=== PATIENT | female | born 1980 | race Asian ===

== ENCOUNTER → 2019-06-12 | Outpatient (CLI) | payer OTHER | END | disposition home or self-care (01) | LOC: LABWHC1 10:21 | PROVIDERS: ATTEND Obstetrics & Gynecology | DX: Z34.80 Encounter for supervision of other normal pregnancy, unspecified trimester (principal) | CPT/HCPCS: 36415; 84702 ==

== ENCOUNTER → 2019-06-28 | Outpatient (CLI) | payer OTHER ==
--- NOTE | 2019-06-28 11:44 | US ---
EXAMINATION TYPE: Transabdominal DATE OF EXAM: 06/28/2019 11:29 AM COMPARISON: NONE CLINICAL HISTORY: Z36 Confirm Dates. EXAM PERFORMED: Transabdominal (TA) EXAM MEASUREMENTS: GESTATIONAL AGE / DATING Physician Established: Not yet established Dates by LMP: LMP unknown Dates by First Scan: No previous this is first scan ( Dates by Current Scan for: (12 weeks/3 days) EDC: 01/07/2020 MATERNAL ANATOMY Uterus: 13.2 x 6.9 x 9.7 cm Right Ovary: 3.0 x 1.4 x 2.2 cm Left Ovary: 2.9 x 2.1 x 2.8 cm Post CDS / Adnexa: wnl Presence of free fluid: none Subchorionic hemorrhage: Yes, crescentic 3.5 cm hypoechoic area around the gestational sac. GESTATION / SURVEY CRL: 5.9 cm (12 weeks/3 days) Yolk Sac (normal less than 6mm): not seen Heart Rate: 149 bpm Rhythm: Normal IUP: Live IUP Nuchal Translucency 10-14wks (normal less than 3mm): 1.4 mm Date of LMP: unknown IMPRESSION: 1. Single live intrauterine with a calculated sonographic age of 12 weeks and 3 days and es timated date of delivery of 01/07/2020. 2. Subchorionic hemorrhage is seen measuring approximately 3.5 cm occupying less than 25% the gestati onal sac diameter.
== END | disposition home or self-care (01) ==
LOC: RADUSWWP 11:15
PROVIDERS: ATTEND Obstetrics & Gynecology
DX: O20.9 Hemorrhage in early pregnancy, unspecified (principal); Z3A.12 12 weeks gestation of pregnancy
CPT/HCPCS: 76801; 76813

== ENCOUNTER 2019-11-05 17:24 | Inpatient (IN) | payer MEDICAID, OTHER ==
--- NOTE | 2019-11-05 18:36 | ED ---
General Adult HPI - General Chief complaint: Psychiatric Symptoms Stated complaint: mental health Time Seen by Provider: 11/05/19 17:49 Source: patient, police Mode of arrival: ambulatory Limitations: no limitations - History of Present Illness Initial comments: Dictation was produced using [employer] dictation software. please excuse any grammatical, word or spelling errors. Chief Complaint: 38-year-old female brought in by law enforcement for worm picker order. History of Present Illness: Is a 38-year-old female she was brought in by law enforcement for abnormal behavior. Cranial law enforcement patient has been having strange behavior. was concerned and contacted enforcement sanitation in order for her to be picked up to brought emergency department for psychiatric evaluation. Patient has been cooperative little enforcement. Creatinine is a bit of documentation patient has been having bizarre behavior with visual and auditory hallucinations. Unclear whether patient has history of psychiatric disease. Patient was also endorsed to come to the emergency department by her car varnisher however she's been very adamant that she does not need to come here for evaluation. Patient is allegedly 7 months . She states she is having issues with the . She reports taking her vitamins. The ROS documented in this emergency department record has been reviewed and confirmed by me. Those systems with pertinent positive or negative responses have been documented in the HPI. All other systems are other negative and/or noncontributory. PHYSICAL EXAM: General Impression: Alert and oriented x3, not in acute distress HEENT: Normocephalic atraumatic, extra-ocular movements intact, pupils equal and reactive to light bilaterally, mucous membranes moist. Cardiovascular: Heart regular rate and rhythm, S1&S2 audible, no murmurs, rubs or gallops Chest: Lungs clear to auscultation bilaterally, no rhonchi, no wheeze, no rales Abdomen: Bowel sounds present, abdomen soft, non-tender, non-distended, no organomegaly Musculoskeletal: Pulses present and equal in all extremities, no peripheral edema Motor: no focal deficits noted Neurological: CN II-XII grossly intact, no focal motor or sensory deficits noted Skin: Intact with no visualized rashes Psych: Cooperative, tangential speech ED course: 38-year-old female presents with law enforcement for psychiatric evaluation. As upon arrival shows heart rate of 108, rest of vital signs within acceptable limits. Well-appearing. She has no medical complaints at this time. heart rate is 140. Patient medically cleared for EPS evaluation. Patient vital by EPS. She'll be admitted to inpatient psychiatry. Petition was reviewed. Cert completed. - Related Data Home Medications Medication Instructions Recorded Confirmed Vxm-Rdwp-Esbox Acid 1 cap PO DAILY 11/05/19 11/05/19 [-U Capsule (formulary)] Allergies Allergy/AdvReac Type Severity Reaction Status Date / Time No Known Allergies Allergy Verified 11/05/19 19:20 Review of Systems ROS Statement: Those systems with pertinent positive or pertinent negative responses have been documented in the HPI. ROS Other: All systems not noted in ROS Statement are negative. Past Medical History Past Medical History: No Reported History History of Any Multi-Drug Resistant Organisms: None Reported Past Surgical History: No Surgical Hx Reported Past Psychological History: No Psychological Hx Reported Smoking Status: Never smoker Past Alcohol Use History: None Reported Past Drug Use History: None Reported General Exam Limitations: no limitations Course Vital Signs 11/05/19 17:28 Temperature 98.0 F Pulse Rate 108 H Respiratory 18 Rate Blood Pressure 145/92 O2 Sat by Pulse 100 Oximetry Medical Decision Making - Lab Data Lab Results 11/05/19 Range/Units Unknown Urine Opiates Screen Not Detected (NotDetected) Ur Oxycodone Screen Not Detected (NotDetected) Urine Methadone Screen Not Detected (NotDetected) Ur Propoxyphene Screen Not Detected (NotDetected) Ur Barbiturates Screen Not Detected (NotDetected) U Tricyclic Antidepress Not Detected (NotDetected) Ur Phencyclidine Scrn Not Detected (NotDetected) Ur Amphetamines Screen Not Detected (NotDetected) U Methamphetamines Scrn Not Detected (NotDetected) U Benzodiazepines Scrn Not Detected (NotDetected) Urine Cocaine Screen Not Detected (NotDetected) U Marijuana (THC) Screen Not Detected (NotDetected) Disposition Clinical Impression: Acute psychosis Disposition: ADMITTED IP TO THIS [facility] Condition: Fair Referrals: Wilmar Serna MD [Primary Care Provider] - 1-2 days Decision Time: 20:25
[2019-11-05 19:36] LABS: Amphetamine Screen,Urine Not Detected (NotDetected); Barbiturate Screen,Urine Not Detected (NotDetected); Benzodiazepines Screen,Urine Not Detected (NotDetected); Cocaine Screen,Urine Not Detected (NotDetected); Methadone Screen, Urine Not Detected (NotDetected); Opiate Screen,Urine Not Detected (NotDetected); Oxycodone Screen, Urine Not Detected (NotDetected); Phencyclidine Screen,Urine Not Detected (NotDetected); Tricyclic Antidepressant,Urine Not Detected (NotDetected); Urn Cannabinoid Scrn Not Detected (NotDetected)
[2019-11-05] MEDS ORDERED: ZIPRASIDONE 20 MG VIAL IM PRN ×2 (20:54→23:20)
[2019-11-05] MEDS ORDERED: MAG HYDROX/AL HYDROX/SIMETH 30 ML CUP PO PRN (20:54)
[2019-11-05] MEDS ORDERED: MAGNESIUM HYDROXIDE 2,400 MG/10 ML CUP PO PRN (20:54)
[2019-11-05] MEDS ORDERED: ACETAMINOPHEN TAB 325 MG TAB PO PRN (20:54)
[2019-11-06] MEDS: PRENATAL VIT-IRON-FOLIC ACID 1 EACH CAP PO SCH (09:13)
[2019-11-06 11:22] LABS: ALT 112 U/L (4-34); AST 92 U/L (14-36); African American GFR (CKD) >90 (>60 ml/min/1.73 sqM); Albumin 3.2 g/dL (3.5-5.0); Alkaline Phosphatase 109 U/L (38-126); Anion Gap 7 mmol/L; Blood Urea Nitrogen 11 mg/dL (7-17); Calcium 8.9 mg/dL (8.4-10.2); Carbon Dioxide 23 mmol/L (22-30); Chloride 106 mmol/L (98-107); Cholesterol 285 mg/dL (<200); Glucose 117 mg/dL (74-99); HDL Cholesterol 43 mg/dL (40-60); LDL Cholesterol,Calculated 194 mg/dL (0-99); Non-African American GFR(CKD) >90 (>60 ml/min/1.73 sqM); Potassium 3.7 mmol/L (3.5-5.1); Sodium 136 mmol/L (137-145); Total Bilirubin 0.4 mg/dL (0.2-1.3); Total Protein 6.6 g/dL (6.3-8.2); Triglycerides 238 mg/dL (<150)
[2019-11-06 11:27] LABS: Basophils % (A) 0 %; Eosinophils # (A) 0.3 k/uL (0-0.7); Eosinophils % (A) 4 %; HGB 8.6 gm/dL (11.4-16.0); Hypochromasia Marked; Lymphocytes # (A) 1.4 k/uL (1.0-4.8); Lymphocytes % (A) 16 %; MCH 28.1 pg (25.0-35.0); MCHC 31.9 g/dL (31.0-37.0); Mean Platelet Volume 8.3; Monocytes # (A) 0.5 k/uL (0-1.0); Monocytes % (A) 6 %; Neutrophils # (A) 6.3 k/uL (1.3-7.7); Neutrophils % (A) 73 %; Platelet Count 444 k/uL (150-450); Poikilocytosis Slight; RBC 3.07 m/uL (3.80-5.40); WBC 8.7 k/uL (3.8-10.6)
--- NOTE | 2019-11-06 15:52 | P.HP ---
Psychiatric H&P - . History & Physical: Allergies Allergy/AdvReac Type Severity Reaction Status Date / Time No Known Allergies Allergy Verified 11/05/19 22:39 Vital Signs Temp 98.6 F 11/06/19 06:46 Pulse 87 11/06/19 06:46 Resp 16 11/06/19 06:46 BP 96/52 11/06/19 06:46 Pulse Ox 100 11/05/19 17:28 Intake & Output 11/05/19 11/06/19 11/06/19 18:59 06:59 18:59 Weight 64.773 kg 62.596 kg Laboratory Last Values WBC 8.7 k/uL (3.8-10.6) 11/06/19 10:39 RBC 3.07 m/uL (3.80-5.40) L 11/06/19 10:39 Hgb 8.6 gm/dL (11.4-16.0) L 11/06/19 10:39 Hct 27.0 % (34.0-46.0) L 11/06/19 10:39 MCV 88.0 fL (80.0-100.0) 11/06/19 10:39 MCH 28.1 pg (25.0-35.0) 11/06/19 10:39 MCHC 31.9 g/dL (31.0-37.0) 11/06/19 10:39 RDW 14.0 % (11.5-15.5) 11/06/19 10:39 Plt Count 444 k/uL (150-450) 11/06/19 10:39 Neutrophils % 73 % 11/06/19 10:39 Lymphocytes % 16 % 11/06/19 10:39 Monocytes % 6 % 11/06/19 10:39 Eosinophils % 4 % 11/06/19 10:39 Basophils % 0 % 11/06/19 10:39 Neutrophils # 6.3 k/uL (1.3-7.7) 11/06/19 10:39 Lymphocytes # 1.4 k/uL (1.0-4.8) 11/06/19 10:39 Monocytes # 0.5 k/uL (0-1.0) 11/06/19 10:39 Eosinophils # 0.3 k/uL (0-0.7) 11/06/19 10:39 Basophils # 0.0 k/uL (0-0.2) 11/06/19 10:39 Hypochromasia Marked 11/06/19 10:39 Poikilocytosis Slight 11/06/19 10:39 Sodium 136 mmol/L (137-145) L 11/06/19 10:39 Potassium 3.7 mmol/L (3.5-5.1) 11/06/19 10:39 Chloride 106 mmol/L (98-107) 11/06/19 10:39 Carbon Dioxide 23 mmol/L (22-30) 11/06/19 10:39 Anion Gap 7 mmol/L 11/06/19 10:39 BUN 11 mg/dL (7-17) 11/06/19 10:39 Creatinine 0.55 mg/dL (0.52-1.04) 11/06/19 10:39 Est GFR (CKD-EPI)AfAm >90 (>60 ml/min/1.73 sqM) 11/06/19 10:39 Est GFR (CKD-EPI)NonAf >90 (>60 ml/min/1.73 sqM) 11/06/19 10:39 Glucose 117 mg/dL (74-99) H 11/06/19 10:39 Calcium 8.9 mg/dL (8.4-10.2) 11/06/19 10:39 Total Bilirubin 0.4 mg/dL (0.2-1.3) 11/06/19 10:39 AST 92 U/L (14-36) H 11/06/19 10:39 ALT 112 U/L (4-34) H 11/06/19 10:39 Alkaline Phosphatase 109 U/L (38-126) 11/06/19 10:39 Total Protein 6.6 g/dL (6.3-8.2) 11/06/19 10:39 Albumin 3.2 g/dL (3.5-5.0) L 11/06/19 10:39 Triglycerides 238 mg/dL (<150) H 11/06/19 10:39 Cholesterol 285 mg/dL (<200) H 11/06/19 10:39 LDL Cholesterol, Calc 194 mg/dL (0-99) H 11/06/19 10:39 HDL Cholesterol 43 mg/dL (40-60) 11/06/19 10:39 TSH 0.656 mIU/L (0.465-4.680) 11/06/19 10:39 Urine Opiates Screen Not Detected (NotDetected) 11/05/19 Unknown Ur Oxycodone Screen Not Detected (NotDetected) 11/05/19 Unknown Urine Methadone Screen Not Detected (NotDetected) 11/05/19 Unknown Ur Propoxyphene Screen Not Detected (NotDetected) 11/05/19 Unknown Ur Barbiturates Screen Not Detected (NotDetected) 11/05/19 Unknown U Tricyclic Antidepress Not Detected (NotDetected) 11/05/19 Unknown Ur Phencyclidine Scrn Not Detected (NotDetected) 11/05/19 Unknown Ur Amphetamines Screen Not Detected (NotDetected) 11/05/19 Unknown U Methamphetamines Scrn Not Detected (NotDetected) 11/05/19 Unknown U Benzodiazepines Scrn Not Detected (NotDetected) 11/05/19 Unknown Urine Cocaine Screen Not Detected (NotDetected) 11/05/19 Unknown U Marijuana (THC) Screen Not Detected (NotDetected) 11/05/19 Unknown 11/06/19 12:59 IDENTIFYING DATA: [this patient is a 38-year-old [place] Gabonese female who was admitted to the mental health unit on a pickup order for presumed symptoms of psychosis.] HPI: [the patient was admitted to the hospital after she was brought to the emergency room by police as part of a pickup order. The patient's had completed a petition indicating she was experiencing acute symptoms of psychosis. He alleges that she has made threats to slice his throat or stab him while he sleeps. With the patient expressed permission I was able to speak with the patient via phone. She indicates that for the past 3 years the patient has been demonstrating symptoms of psychosis. It seems to be intensifying more over the last several months and that is when she began making threatening statements towards him. He states that she will frequently talk to herself she gets angry and starts screaming. She is telling family or she can communicate with people that are present such as family in the [place]. She states per his report, people are out to get her and that people on [employer] are watching her.he states she has told him that people are always outside of their home, border patrol is watching her since she is on a green card, and she believes her last employer due to DNA test on her. The patient denies having any symptoms. She continually refers to "the paper" meaning the petition. She frequently states "no comment" when asked about her symptoms of psychosis. She reports no thoughts of harming herself or harming others. She reports no thoughts of harming her children. Her states due to concern related to her behavior he and their 2 children moved out of the family home months ago. He states that he will visit with his during the day but he does not feel safe being at home with her while he sleeps. He indicates that the children's grandmother also provide care. The patient states that she is sleeping well appetite is stable she describes energy level is normal. She is endorsing no episodes of sadness is endorsing no symptoms of anxiety. She does speak Hungarian and she feels that we were effectively communicating.] PAST PSYCHIATRIC HISTORY: [she indicates this is her first inpatient psychiatric admission, no history of suicide attempts she reports no history of self- injurious behavior. She states she has never been prescribed any psychotropic medications] PMH:[she describes herself as "healthy" she is 7 months and has been regularly seen her environmental protection geologist] ALLERGIES: [NO KNOWN DRUG ALLERGIES] MEDICATIONS: [ vitamin] CHEMICAL DEPENDENCY HISTORY: [she reports no use of alcohol marijuana or illicit drugs she states she's never been placed in residential treatment for chemical dependency reasons] FAMILY PSYCHIATRIC HISTORY: [none reported no suicides in the family] FAMILY CHEMICAL DEPENDENCY HISTORY: [none reported] SOCIAL HISTORY: [the patient is 38 years old she has been since 2006 she currently has 2 children a son age 9 and a daughter age 7, she is originally from the [place] [place] she came to the [facility] states in 2008. She has 3 brothers 2 sisters. She indicates in the [place] she completed college earning a degree in business. Legal history none reported. Abuse history none reported] MENTAL STATUS EXAM: [the patient is a [place] female appearing her stated age. She is dressed in hospital gowns. Eye contact is appropriate. She is guarded in the session several times she responds to my questions with "no comment". She somewhat perseverative in constantly referring to the petition that was completed by her . She denies having any symptoms. She reports no mood symptoms no anxiety symptoms. She denies any history of hypomanic or manic episodes. She reports no auditory or visual hallucinations or any specific delusions. She is likely underreporting symptoms. Insight and judgment are impaired. She is oriented to person place and date. She is able to name the days of the week backwards. She demonstrates no verbal or physical aggressiveness. She demonstrates no involuntary or repetitive movements. She does not initiate conversation but provides answers to questions.] STRENGTHS/WEAKNESSES: [strengths: Housing, support from family weaknesses: Reported symptoms of psychosis impairing insight and judgment] INTELLECTUAL FUNCTIONING: [presumed to be average] IMPRESSIONS: [] 1. Psychosis unspecified 2. Patient is 7 months PLAN: [the patient has been admitted to the mental health unit on a petition and clinical certificate. She does not agree with the hospitalization she does not feel that she requires any use of medication. Her via phone supplies several examples of how she has demonstrated symptoms of psychosis. In person she does appear to be guarded and underreporting symptoms. We will observe her as part of our evaluation. She is instructed to attend groups. She will be seen by internal medicine for routine history and physical exam. Social work will meet with the patient to complete a psychosocial assessment and begin discharge planning. We will consider use of an antipsychotic medication despite her as it appears her symptoms of psychosis are causing significant dysfunction. Vital signs reviewed.] 11/06/19 15:45
--- NOTE | 2019-11-06 17:32 | P.OBCN ---
History of Present Illness Consult date: 11/06/19 Reason for consult: other (, pt known to me) Chief complaint: mental health evaluation History of present illness: 38-year-old who is at 30 weeks and 5 days today was petitioned by her for an inpatient mental health evaluation for symptoms of psychosis. She states that the baby is moving well, she is not semaj or having any vaginal bleeding, she does not believe her water was broken. She has no obstetrical complaints. today she tells me that her relationship with her , and her mental health fluid through to speak with her about. I am allowed to speak with her about her and the baby. I believe that her response to me and this is due to the conversation that we had on October 25 in my office. I have been seeing this patient since the beginning of the y. I have been concerned about her mental health for the last few months. She started by telling me in the office a few months ago that her baby can come out of her belly and cuddle with her and then go back in to her belly. When I asked psychiatry for guidance, I was advised to ask her if there is anything else that she is seeing but others are not. When I did put this question to her on Dece mb, the patient said that she sees people come out of the water in the beach, out of them, they do not scare her but they are present and then walk around and go back into the water. She said that sometimes there are people do come out of the bains, up from the floor like smoke and then go back the same way. She said to me at that appointment that this does not bother her, that she does not need mental health evaluation as it is only my opinion that she is having mental health issues. I have spoken to the and family as well who tell me that she has threatened violence to them. She has threatened to cut her 's throat in his sleep. The is not staying with Laura Sanchez denied that at the office visit. Review of Systems All systems: negative Constitutional: Denies chills, Denies fever Eyes: denies blurred vision, denies pain Ears, nose, mouth and throat: Denies headache, Denies sore throat Cardiovascular: Denies chest pain, Denies shortness of breath Respiratory: Denies cough Gastrointestinal: Denies abdominal pain, Denies diarrhea, Denies nausea, Denies vomiting Genitourinary: Denies dysuria, Denies hematuria Musculoskeletal: Denies myalgias Integumentary: Denies pruritus, Denies rash Neurological: Denies numbness, Denies weakness Psychiatric: Denies anxiety, Denies depression Endocrine: Denies fatigue, Denies weight change Past Medical History Past Medical History: No Reported History History of Any Multi-Drug Resistant Organisms: None Reported Past Surgical History: No Surgical Hx Reported Past Psychological History: No Psychological Hx Reported Smoking Status: Never smoker Past Alcohol Use History: None Reported Past Drug Use History: None Reported Medications and Allergies Home Medications Medication Instructions Recorded Confirmed Type Auj-Urrh-Yxuzb Acid 1 cap PO DAILY 11/05/19 11/05/19 History [-U Capsule (formulary)] Allergies Allergy/AdvReac Type Severity Reaction Status Date / Time No Known Allergies Allergy Verified 11/05/19 22:39 Exam Osteopathic Statement: *. No significant issues noted on an osteopathic structural exam other than those noted in the History and Physical/Consult. Vital Signs Temp Pulse Pulse Resp BP BP Pulse Ox 11/06/19 06:46 98.6 F 87 16 96/52 11/05/19 22:22 97.7 F 98 16 118/68 11/05/19 17:28 98.0 F 108 H 18 145/92 100 gravid belly, fundal height 30 cm, heart tones 143. Results Result Diagrams: 11/06/19 10:39 11/06/19 10:39 Abnormal Lab Results - Last 24 Hours (Table) 11/06/19 11/06/19 Range/Units 10:39 10:39 RBC 3.07 L (3.80-5.40) m/uL Hgb 8.6 L (11.4-16.0) gm/dL Hct 27.0 L (34.0-46.0) % Sodium 136 L (137-145) mmol/L Glucose 117 H (74-99) mg/dL AST 92 H (14-36) U/L ALT 112 H (4-34) U/L Albumin 3.2 L (3.5-5.0) g/dL Triglycerides 238 H (<150) mg/dL Cholesterol 285 H (<200) mg/dL LDL Cholesterol, Calc 194 H (0-99) mg/dL Assessment and Plan (1) 30 weeks gestation of Current Visit: Yes Status: Acute Code(s): Z3A.30 - 30 WEEKS GESTATION OF SNOMED Code(s): 84181324 (2) Acute psychosis Current Visit: Yes Status: Acute Code(s): F23 - BRIEF PSYCHOTIC DISORDER SNOMED Code(s): 11099162 Plan: 1. I will have a nurse come down daily for heart tones 2. I will follow her progress 3. She is high-risk due to her advanced maternal age but I couldn't continue surveillance while she is in the hospital and twice weekly surveillance does not start until 32 weeks.
[2019-11-06 19:12] LABS: Hemoglobin A1C 5.1 % (4.0-6.0)
--- NOTE | 2019-11-06 19:59 | P.CONS ---
History of Present Illness - Reason for Consult Consult date: 11/06/19 medical management Requesting physician: Akhil Peña - Chief Complaint threatening - History of Present Illness Consultation: This is a 38-year-old patient who follows with Dr. Serna. Patient is with her third child and is 7 months . 2 other children are healthy. She was admitted following a petition but the that she has threatened to cut her with a knife and hurt him. When I did address the patient if she was hearing voices or seeing people she denied the same. She appeared very calm and comfortable during the interview and was pleasantly answered all the questions. She has been attending a follow-ups with her telephone operator receptionist. Has been taking a multivitamins. She can feel the baby kicking. She sleeps well. Eats well. Denies any pain. I did a cooperative checked later: Notes a psychiatrist and the circulation worker and it seems during her follow-up visits with the telephone operator receptionist she was talking about the baby coming all the belly currently with her and she was seeing people coming out of the water and the bains. When I did ask her about her D for the was going on she said every marriage has some problems and she does not want to talk, etc. no comments Review of systems: GEN.: None EYES: None HEENT: None NECK: None RESPIRATORY: None CARDIOVASCULAR: None GASTROINTESTINAL: None GENITOURINARY: None MUSCULOSKELETAL: None LYMPHATICS: None HEMATOLOGICAL: None PSYCHIATRY: Has above NEUROLOGICAL: None. Past medical history: Unremarkable Social history: Patient currently not employed. Apparently the has moved out to 2 other children and this was at the patient at the current house. Family history: Reviewed, noncontributory to presentation Physical examination: VITAL SIGNS: 98, 108, 18, 145/92, 100% room air repeat blood pressure 96/52 GENERAL: BMI 25.2, laying in bed. EYES: Pupils equal. Conjunctiva normal. HEENT: External appearance of nose and ears normal, oral cavity grossly normal. NECK: JVD not raised; masses not palpable. HEART: First and second heart sounds are normal; no edema. LUNGS: Respiratory rate normal; clear to auscultation. ABDOMEN: Soft, distended, nontender, liver spleen not palpable, no masses palpable. PSYCH: [Alert and oriented x3; mood and affect pleasant l. NEUROLOGICAL: Cranial nerves grossly intact; no facial asymmetry, power and se nsation grossly intact. LYMPHATICS: No lymph nodes palpable in the axilla and neck INVESTIGATIONS, reviewed in the clinical context: White count 8.7 hemoglobin 8.6 L 444 potassium 3.7 creatinine 0.55 AST 92 ALT 112 LDL 194 TSH 0.656, urine drug screen-negative Assessment: -Psychosis, not otherwise specified -Microcytic anemia, of -Elevated liver enzymes, with normal bilirubin Plan: Patient started any medication that'll explain her elevated liver enzymes. Does not have any obstructive picture. No abdominal symptoms. We'll repeat the same. We'll get a liver ultrasound. We'll also check iron studies. Thank you Dr. Peña Past Medical History Past Medical History: No Reported History History of Any Multi-Drug Resistant Organisms: None Reported Past Surgical History: No Surgical Hx Reported Past Psychological History: No Psychological Hx Reported Smoking Status: Never smoker Past Alcohol Use History: None Reported Past Drug Use History: None Reported Medications and Allergies Home Medications Medication Instructions Recorded Confirmed Type Jic-Vodw-Vmmur Acid 1 cap PO DAILY 11/05/19 11/05/19 History [-U Capsule (formulary)] Allergies Allergy/AdvReac Type Severity Reaction Status Date / Time No Known Allergies Allergy Verified 11/05/19 22:39 Physical Exam Vitals: Vital Signs Temp Pulse Pulse Resp BP BP Pulse Ox 11/06/19 06:46 98.6 F 87 16 96/52 11/05/19 22:22 97.7 F 98 16 118/68 11/05/19 17:28 98.0 F 108 H 18 145/92 100 Intake and Output 11/05/19 11/06/19 11/06/19 22:59 06:59 14:59 Other: Weight 62.596 kg Results CBC & Chem 7: 11/06/19 10:39 11/06/19 10:39
[2019-11-07] MEDS: PRENATAL VIT-IRON-FOLIC ACID 1 EACH CAP PO SCH (10:36)
--- NOTE | 2019-11-07 13:46 | US ---
EXAMINATION TYPE: US abdomen limited DATE OF EXAM: 11/07/2019 COMPARISON: NONE CLINICAL HISTORY: elevated transaminases/7 months . elevated transaminases, 7 months EXAM MEASUREMENTS: Liver Length: 15.1 cm Gallbladder Wall: 0.3 cm CBD: 0.4 cm Right Kidney: 11.3 x 3.9 x 5.2 cm Pancreas: Tail obscured by overlying bowel gas Liver: appears wnl Gallbladder: sludge Evidence for sonographic Gtz's sign: no CBD: appears wnl Right Kidney: no evidence of hydronephrosis or mass and cortical medullary differentiation is mainta ined There is no ascites. IMPRESSION: Tumefactive sludge present within the gallbladder.
--- NOTE | 2019-11-07 14:18 | P.PN ---
Progress Note - Text interval history: The patient is found in the hallway she follows me to an interview room. She indicates that she slept last night appetite is stable. She continues to assert that she is "healthy" and does not need treatment. I was able to speak with her at length via phone and also reviewed the note placed by her public policy professor. Both individuals provide information citing specific examples of psychosis that are causing significant dysfunction in the patient's life and her family's life. The patient frequently states "no comment" or "that's nobody's business" when I tried to discuss the symptoms of psychosis. Staff report no aggressive behavior. Mental status exam: The patient is alert she is 7 months and appears to have appropriate weight gain. She is dressed in her own clothing. She is directable. Eye contact is appropriate. Speech is fluent spontaneous nonpressured. During the course of our conversation she indicates that she can understand my questions and answers I provide although she does not agree with them. She continually refers to any statements I make as "that's your opinion". Overall she is guarded and appears to be withholding information regarding current symptoms. Insight and judgment are impaired. She demonstrates no verbal or physical aggressiveness. She is quite perseverative and repeats the same line of thought several times. She is oriented to person place and date. Affect is constricted. She reports no suicidal or homicidal ideation. She denies making statements that she was going to cut or stab her while he slept. Plan: The patient appears guarded and paranoid at times. There is a wealth of information from her as well as her public policy professor regarding recent symptoms of psychosis that it caused significant dysfunction. We will proceed with prescribing Abilify 5 mg daily. I believe in this instance the potential benefits of the medication outweigh any potential risks. She is already in the third trimester. She is informed that she may refuse the medication unless we obtain a treatment order. Her deferral conference is scheduled for today her hearing is scheduled for tomorrow if it is needed. She was informed that I will be on vacation for several days and colleagues will be providing coverage. Vital signs reviewed.
[2019-11-07] MEDS: ARIPiprazole 5 MG TAB PO SCH (16:17)
[2019-11-07 16:19] LABS: % Iron Saturation 2.83 (12.00-45.00); Ferritin 7.4 ng/mL (10.0-291.0)
[2019-11-08] MEDS: ARIPiprazole 5 MG TAB PO SCH (08:24)
[2019-11-08] MEDS: PRENATAL VIT-IRON-FOLIC ACID 1 EACH CAP PO SCH (08:25)
--- NOTE | 2019-11-08 10:18 | P.PN ---
Progress Note - Text Progress Note Date: 11/08/19 Interval history: patient was seen for cross coverage for Dr. Peña. Patient was seen wandering the hallways and was agreeable to speak to write in the office. Patient did state that she deferred yesterday with the managing attorney and sign the treatment agreement. Patient was somewhat guarded and gave few details about her night last night. Patient states that she offers no overnight complaints and claims that she has been attending go to groups. She was preoccupied with discharge and claims that she has been speaking to her on the phone a lot lately. Patient did not appear to be responding to inner stimuli. Patient continues to have some disorganized thoughts and ideas. At this time patient denies any suicidal or homicidal ideations intent or plan. Denies any Auditory or visual hallucinations. she claims that she was hesitant about taking the medications however has been taking them but does not know why she is taking them. She denies any side effects at this time Mental status exam: General Appearance: Patient appears to be stated age is alert, directable and guarded. Behavior: No agitated behavior. Patient is calm Speech: Patient's speech is fluent and nonpressured. Mood/Affect: Mood is "the same", affect is congruent and constricted. Suicidality/Homicidality: Patient denies having any suicidal or homicidal ideation intent or plan. Perceptions: Patient denies any auditory or visual hallucinations. Though content/process: patient has some disorganized thoughts and also gives few details/guarded. Memory and concentration: AOX3, grossly intact for the purposes of this session Judgment and insight: improving mildly. Assessment/Plan: Continue with current diagnosis. Patient continues to meet criteria for inpatient psychiatric admission for symptom stabilization and safety. Patient will be maintained on current psychotropic medication regimen. it appears that there has been much concern from her and her SCREEN PRINTER about patient's mental health and psychotic thoughts for the past few months. at this time he does believe that the potential benefits of the medications outweigh any potential risks. Monitor for medication compliance and for any psychotropic medication side effects. Will continue to monitor ongoing response to treatment. patient signed deferral for treatment yesterday with managing attorney. I asked patient to have her come in over the weekend to assess for baseline and any safety risks at home prior to discharge. Likely discharge next week.
--- NOTE | 2019-11-08 10:53 | P.GSCN ---
History of Present Illness Consult date: 11/08/19 History of present illness: CHIEF COMPLAINT: Gallbladder sludge HISTORY OF PRESENT ILLNESS: The patient is a 38-year-old female who is admitted secondary to acute psychoses. Information is obtained via her nurse and medical records. Secondary to her and third trimester, liver enzymes and heart tones were obtained. Her LFTs were elevated prompting ultrasound of her liver. Incidental findings of gallbladder sludge was found hence general surgery consultation. She denies any abdominal pain. No recent nausea or vomiting. She is unaware of any prior gallbladder attacks. PAST MEDICAL HISTORY: Please see list PAST SURGICAL HISTORY: Please see list MEDICATIONS: Please see list ALLERGIES: Denies. SOCIAL HISTORY: Please see list FAMILY HISTORY: Non-contributory REVIEW OF ORGAN SYSTEMS: CONSTITUTIONAL: No reports of fevers or chills. HEENT: Denies any troubles with the vision or hearing. ENDOCRINE: No reports of hypothyroidism. No diabetes. RESPIRATORY: No recent pneumonias. CARDIOVASCULAR: Denies chest pain or palpitations GI: No blood in stools or constipation. MUSCULOSKELETAL: Has occasional joint pain including back pain. NEURO: No seizure disorders or headaches. No recent stroke. PSYCH: Has depression. Has current psychosis. GENITOURINARY: No active blood in urine. No urinary hesitancy. HEMATOLOGIC: No personal or family history of DVTs or pulmonary emboli. SKIN: No skin cancer. PHYSICAL EXAM: VITAL SIGNS: Afebrile vital signs stable GENERAL: Well-developed in no acute distress. HEENT: No scleral icterus. Extraocular movements grossly intact. Moist buccal mucosa. NECK: Supple without lymphadenopathy. CHEST: Unlabored respirations. Equal bilateral excursions. CARDIOVASCULAR: Regular rate regular rhythm rhythm. Distal 2+ pulses. ABDOMEN: Soft, gravid above umbilicus. Non-tender. No peritonitis. MUSCULOSKELETAL: No clubbing, cyanosis, or edema. NEURO: Cranial nerves II to XII within normal limits. No focal or lateralizing signs. PSYCH: Alert and oriented to person. Poor insight. SKIN: Well-perfused good skin turgor. STUDIES: Ultrasound of the gallbladder in the panel reviewed demonstrating sludge along the gallbladder. No evidence of cholecystitis. ASSESSMENT: 1. Elevated LFTs 2. Sludge in gallbladder. PLAN: 1. Patient seen and evaluated. She is , third trimester with incidental findings of gallstones. 2. Cholecystectomy contra-indicated as she denies any abdominal pain. She comes in for psychosis. 3. No surgical intervention until post-. 4. Low fat diet advised. 5. Patient to follow-up as outpatient. Thank you for this consultation. Past Medical History Past Medical History: No Reported History History of Any Multi-Drug Resistant Organisms: None Reported Past Surgical History: No Surgical Hx Reported Past Psychological History: No Psychological Hx Reported Smoking Status: Never smoker Past Alcohol Use History: None Reported Past Drug Use History: None Reported Medications and Allergies Home Medications Medication Instructions Recorded Confirmed Type Ndt-Vkjf-[id number] Acid 1 cap PO DAILY 11/05/19 11/05/19 History [-U Capsule (formulary)] Allergies Allergy/AdvReac Type Severity Reaction Status Date / Time No Known Allergies Allergy Verified 11/05/19 22:39 Surgical - Exam Vital Signs Temp Pulse Resp BP Pulse Ox 98.0 F 108 H 18 145/92 100 11/05/19 17:28 11/05/19 17:28 11/05/19 17:28 11/05/19 17:28 11/05/19 17:28 Results - Labs 11/06/19 10:39 11/06/19 10:39 Abnormal Lab Results - Last 24 Hours (Table) 11/07/19 Range/Units 08:55 Iron 16 L (50-170) ug/dL TIBC 565 H (228-460) ug/dL % Saturation 2.83 L (12.00-45.00) Ferritin 7.4 L (10.0-291.0) ng/mL Assessment and Plan (1) Elevated LFTs Current Visit: Yes Status: Acute Code(s): R94.5 - ABNORMAL RESULTS OF LIVER FUNCTION STUDIES SNOMED Code(s): 309384333 (2) Gallstones Current Visit: Yes Status: Acute Code(s): K80.20 - CALCULUS OF GALLBLADDER W/O CHOLECYSTITIS W/O OBSTRUCTION SNOMED Code(s): 555437419 (3) 30 weeks gestation of Current Visit: Yes Status: Acute Code(s): Z3A.30 - 30 WEEKS GESTATION OF SNOMED Code(s): 07978856 (4) Acute psychosis Current Visit: Yes Status: Acute Code(s): F23 - BRIEF PSYCHOTIC DISORDER SNOMED Code(s): 87449679
[2019-11-09] MEDS: ARIPiprazole 5 MG TAB PO SCH (09:35)
[2019-11-09] MEDS: PRENATAL VIT-IRON-FOLIC ACID 1 EACH CAP PO SCH (09:36)
--- NOTE | 2019-11-09 13:04 | P.PN ---
Progress Note - Text Progress Note Date: 11/09/19 interval history: Patient is seen in [facility] [place]. She does not voice any adverse side effects with the Abilify. Per chart history she did sign a deferral agreement. She makes reference to her coming to visit [facility]. She does inquire regarding wanting to go home. Mental status exam: She is alert and cooperative with the interview. Her speech is fluent, not rapid or pressured. Her thought processes are organized. there is no evidence of manic Presentation and she does not complain of any significant depression. She does not verbalize any thoughts of harm to self or others. She does not voice any hallucinations and does not verbalize any delusional thoughts. She does not show any agitation. Plan: Patient be maintained on current psychotropic medication regimen. Continue to monitor for any medication side effects and monitor her ongoing response to treatment.
[2019-11-10] MEDS: PRENATAL VIT-IRON-FOLIC ACID 1 EACH CAP PO SCH (09:13)
[2019-11-10] MEDS: ARIPiprazole 5 MG TAB PO SCH (09:13)
--- NOTE | 2019-11-10 16:11 | P.PN ---
Progress Note - Text Progress Note Date: 11/10/19 interval history: Patient is seen in [facility] [place] again today. She reports that her did not come to visit last night. She is looking for him to come tonight. She slept 8 hours last night. She seems to be eating well. She does not voice any adverse psychotropic medication side effects. She wonders about being able to be discharged. Mental status exam: She is alert and cooperative with the interview. Her speech is fluent, not rapid or pressured. Thought processes are organized. Her mood she describes is good. She denies any thoughts of harm to self or others. She denies any hallucinations. She denies any bothersome or paranoid thinking. She does not show any agitation. Plan: Patient will be maintained on current dose of Abilify. We'll continue to monitor for any medication side effects and monitor her ongoing response to treatment.
[2019-11-11] MEDS: PRENATAL VIT-IRON-FOLIC ACID 1 EACH CAP PO SCH (10:16)
[2019-11-11] MEDS: ARIPiprazole 5 MG TAB PO SCH (10:16)
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
[2019-11-12] MEDS: ARIPiprazole 5 MG TAB PO SCH (09:21)
[2019-11-12] MEDS: PRENATAL VIT-IRON-FOLIC ACID 1 EACH CAP PO SCH (09:22)
--- NOTE | 2019-11-12 14:46 | P.PN ---
Progress Note - Text Progress Note Date: 11/12/19 Chief complaint: "My mood is much better today " Subjective: The patient has been seen today as follow-up, chart reviewed, case discussed with the treatment team. Patient slept about 5-6 hours last night. Patient has been going to more groups and other unit activities. Patient reports fair ap petite. Patient reports feeling stable emotionally and she presented with disorganized thoughts, rationally speech, and appropriate behavior. She was talking about missing her family and wants to get back with her children and her . She denies any thoughts to hurt herself or anybody including her children or her . Patient was talking about her settlement in [place] and her previous work in a factory. Patient was able to address her mental illness and disturbance of thoughts that she had before this admission and she agreed to continue psychiatric treatment including medications after discharge. Patient was not guarded and denies any paranoid ideation. She denies feeling depressed, hopeless, suicidal and he denies any auditory or visual hallucinations. The patient doesn't look internally preoccupied. The patient is compliant with her medications and denies any adverse reactions. Discussed with the patient and the treatment team to have family meeting to discuss discharge plan. Objective: Vitals has been reviewed. Mental status examination; Appearance: The patient appears stated age, adequately groomed and dressed, no specific features. Gait/posture: Normal gait, Normal arm swinging: No abnormal movements. Attitude and behavior: engaged, cooperative, fair eye contact. Motor activity: Normal psychomotor activity Speech: Normal rate, tone, not pressured. Mood: Anxious Affect: Restricted. Thought form: not circumstantial, not tangential, linear and goal directed. Thought content: Non-delusional, denies suicidal thoughts, denies homicidal thoughts, denies intentions or plans. Perception: Denies any auditory or visual hallucinations Attention: No impairment. Orientation: Patient patient was fully oriented to time place person and situation. Insight: Patient has fair insight about his psychiatric disorder. Judgment: Patient has fair judgment about his psychiatric treatment. Assessment: Unspecified psychosis. Rule out schizophrenia. -7 months Plan: Continue inpatient level of care due to need for further stabilization on medications and discharge planning. Discussed with the treatment team to arrange for family meeting to discuss discharge. Precautions: Continue 15 minutes check for safety. Consider medical consultation if any acute medical issues arise. Provide the patient individual, group therapy to give better insight and learn coping skills. Medications: Abilify 5 mg daily for psychotic symptoms Discharge patient to OUTPATIENT services upon a stabilization Prognosis: Improving Expected LOS: 3-5 days
[2019-11-13] MEDS: ARIPiprazole 5 MG TAB PO SCH (09:58)
[2019-11-13] MEDS: PRENATAL VIT-IRON-FOLIC ACID 1 EACH CAP PO SCH (09:58)
--- NOTE | 2019-11-13 13:10 | P.PN ---
Progress Note - Text Progress Note Date: 11/13/19 Chief complaint: "I am feeling very good today " Subjective: The patient has been seen today as follow-up, chart reviewed, case discussed with the treatment team. Patient reports good sleep last night and he denies any appetite problems. She has been going to more groups and other unit activ ities. Patient reports had talked to her yesterday and he doesn't have any concern about her going back home. Patient denies feeling depressed, hopeless, or suicidal. She denies any homicidal thoughts toward anybody and specifically toward her or her children. She denies any auditory or visual hallucinations, paranoid ideation, and no delusions could be elicited. She denies any manic symptoms, severe mood swings, or agitation. Discussed with the patient to arrange for family meeting to discuss to show she planning and consider discharge by Monday. Objective: Vitals has been reviewed. Mental status examination; Appearance: The patient appears stated age, adequately groomed and dressed, no specific features. Gait/posture: Normal gait, Normal arm swinging: No abnormal movements. Attitude and behavior: engaged, cooperative, fair eye contact. Motor activity: Normal psychomotor activity Speech: Normal rate, tone, not pressured. Mood: Anxious Affect: Restricted. Thought form: not circumstantial, not tangential, linear and goal directed. Thought content: Non-delusional, denies suicidal thoughts, denies homicidal thoughts, denies intentions or plans. Perception: Denies any auditory or visual hallucinations Attention: No impairment. Orientation: Patient patient was fully oriented to time place person and situation. Insight: Patient has fair insight about his psychiatric disorder. Judgment: Patient has fair judgment about his psychiatric treatment. Assessment: Unspecified psychosis. Rule out schizophrenia. -7 months Plan: Continue inpatient level of care due to need for further stabilization on medications and discharge planning. Discussed with the treatment team to arrange for family meeting to discuss discharge. Precautions: Continue 15 minutes check for safety. Consider medical consultation if any acute medical issues arise. Provide the patient individual, group therapy to give better insight and learn coping skills. Medications: Abilify 5 mg daily for psychotic symptoms Discharge patient to OUTPATIENT services upon a stabilization Prognosis: Improving Expected LOS: 2-3 days
[2019-11-14] MEDS: ARIPiprazole 5 MG TAB PO SCH (09:32)
[2019-11-14] MEDS: PRENATAL VIT-IRON-FOLIC ACID 1 EACH CAP PO SCH (09:33)
--- NOTE | 2019-11-14 12:40 | P.PN ---
Progress Note - Text Progress Note Date: 11/14/19 Chief complaint: "I feel very good and ready to go home " Subjective: The patient has been seen today as follow-up, chart reviewed, case discussed with the treatment team. Patient reports good sleep last night with average 8 hours, and he denies any appetite problems. She has been going to more groups and other unit activities. Patient reports feeling stable emotionally and denies feeling depressed, hopeless, or suicidal. She denies any homicidal thoughts toward anybody including her and her children. She denies any psychotic symptoms including auditory or visual hallucinations, paranoid ideation, and no delusions could be elicited. She denies mood swings, severe anxiety or agitation. She has been taking her medications and denies any SEs. Patient requested discharge and I discussed with treatment team today to schedule family meeting to discuss discharge plan with the family. Plan to discharge pt. tomorrow. Objective: Vitals has been reviewed. Mental status examination; Appearance: The patient appears stated age, adequately groomed and dressed, no specific features. Gait/posture: Normal gait, Normal arm swinging: No abnormal movements. Attitude and behavior: engaged, cooperative, fair eye contact. Motor activity: Normal psychomotor activity Speech: Normal rate, tone, not pressured. Mood: "good" Affect: Appropriate. Thought form: not circumstantial, not tangential, linear and goal directed. Thought content: Non-delusional, denies suicidal thoughts, denies homicidal thoughts, denies intentions or plans. Perception: Denies any auditory or visual hallucinations Attention: No impairment. Orientation: Patient patient was fully oriented to time place person and situation. Insight: Patient has fair insight about his psychiatric disorder. Judgment: Patient has fair judgment about his psychiatric treatment. Assessment: Unspecified psychosis. Rule out schizophrenia. -7 months Plan: Continue inpatient level of care due to need for further stabilization on medications and discharge planning. Discussed with the treatment team to arrange for family meeting to discuss discharge plan. Precautions: Continue 15 minutes check for safety. Consider medical consultation if any acute medical issues arise. Provide the patient individual, group therapy to give better insight and learn coping skills. Medications: Abilify 5 mg daily for psychotic symptoms Discharge patient to OUTPATIENT services upon a stabilization Prognosis: Improving Expected LOS: 1-2 days
[2019-11-15] MEDS: PRENATAL VIT-IRON-FOLIC ACID 1 EACH CAP PO SCH (09:25)
[2019-11-15] MEDS: ARIPiprazole 5 MG TAB PO SCH (09:25)
--- NOTE | 2019-11-15 15:52 | P.PN ---
Progress Note - Text Progress Note Date: 11/15/19 Chief complaint: "I want to go home " Subjective: The patient has been seen today as follow-up, chart reviewed, case discussed with the treatment team. Patient reports feeling stable emotionally and denies paranoid ideation, delusions or hallucinations. No reports about any disorganized thoughts or psychotic/inappropriate behavior. Patient was planned for discharge today but her refused to take her back home and claimed patient still looks paranoid to him. Team will continue working on discharge plan. Pt. denies any psychotic symptoms including auditory or visual hallucinations, paranoid ideation, and no delusions could be elicited. She denies mood swings, severe anxiety or agitation. Patient denies any S/H ideation. She has been taking her medications and denies any SEs. Poppy was very depressed and withdrawn after she knew that her will not take her back home. She became very emotional and crying. Objective: Vitals has been reviewed. Mental status examination; Appearance: The patient appears stated age, adequately groomed and dressed, no specific features. Gait/posture: Normal gait, Normal arm swinging: No abnormal movements. Attitude and behavior: engaged, cooperative, fair eye contact. Motor activity: Normal psychomotor activity Speech: Normal rate, tone, not pressured. Mood: "stressed" Affect: Appropriate. Thought form: not circumstantial, not tangential, linear and goal directed. Thought content: Non-delusional, denies suicidal thoughts, denies homicidal thoughts, denies intentions or plans. Perception: Denies any auditory or visual hallucinations Attention: No impairment. Orientation: Patient patient was fully oriented to time place person and situation. Insight: Patient has fair insight about his psychiatric disorder. Judgment: Patient has fair judgment about his psychiatric treatment. Assessment: Unspecified psychosis. Rule out schizophrenia. -7 months Plan: Continue inpatient level of care due to need for further stabilization on medications and discharge planning. 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 Precautions: Communicated to nursing staff to increase frequency checking on the patient- 10 minutes check for safety. Consider medical consultation if any acute medical issues arise. Provide the patient individual, group therapy to give better insight and learn coping skills. Medications: Abilify 5 mg daily for psychotic symptoms Discharge patient to OUTPATIENT services upon a stabilization Prognosis: Improving
[2019-11-16] MEDS: PRENATAL VIT-IRON-FOLIC ACID 1 EACH CAP PO SCH (08:24)
[2019-11-16] MEDS: ARIPiprazole 5 MG TAB PO SCH (08:24)
--- NOTE | 2019-11-16 16:32 | P.PN ---
Progress Note - Text Progress Note Date: 11/16/19 The patient has been seen today as follow-up, chart reviewed, case discussed with the treatment team. Patient reports better mood today and presented with a brighter affect. Patient was talking about her discharge and wanting to contact her again on Monday to consider taking her back. Patient continued to report feeling stable emotionally and he denies depression, feeling hopeless, or suicidal. She denies any paranoid ideation, delusions, or hallucinations. She continued to deny mood swings, irritability, or anxiety. She denies any homicidal ideation. Patient continued to take her psychiatric medication and denies any side effects. She denies any physical symptoms including chest pain, shortness of breath, diarrhea, or burning urination. Objective: Vitals has been reviewed. Mental status examination; Appearance: The patient appears stated age, adequately groomed and dressed, no specific features. Gait/posture: Normal gait, Normal arm swinging: No abnormal movements. Attitude and behavior: engaged, cooperative, fair eye contact. Motor activity: Normal psychomotor activity Speech: Normal rate, tone, not pressured. Mood: "Better today" Affect: Appropriate. Thought form: not circumstantial, not tangential, linear and goal directed. Thought content: Non-delusional, denies suicidal thoughts, denies homicidal thoughts, denies intentions or plans. Perception: Denies any auditory or visual hallucinations Attention: No impairment. Orientation: Patient patient was fully oriented to time place person and situation. Insight: Patient has fair insight about his psychiatric disorder. Judgment: Patient has fair judgment about his psychiatric treatment. Assessment: Unspecified psychosis. Rule out schizophrenia. -7 months Plan: Continue inpatient level of care due to need for further stabilization on medications and discharge planning. 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 Precautions: Discontinue one-to-one observation, and keep every 15 minutes check. Consider medical consultation if any acute medical issues arise. Provide the patient individual, group therapy to give better insight and learn coping skills. Medications: Abilify 5 mg daily for psychotic symptoms Discharge patient to OUTPATIENT services upon a stabilization Prognosis: Improving
[2019-11-17] MEDS: ARIPiprazole 5 MG TAB PO SCH (10:12)
[2019-11-17] MEDS: PRENATAL VIT-IRON-FOLIC ACID 1 EACH CAP PO SCH (10:13)
--- NOTE | 2019-11-17 13:04 | P.PN ---
Progress Note - Text Progress Note Date: 11/17/19 The patient has been seen today as follow-up, chart reviewed, case discussed with the treatment team. Patient presents with organized thoughts and appropriate behavior. No paranoid ideation reported or noticed and no delusions could be elicited. Patient continued to attend groups and other activities with no symptoms or signs of psychosis noticed or reported. Patient denies feeling depressed, hopeless, or suicidal. She denies any hallucinations, paranoid ideation, or delusions. No manic symptoms have been reported or noticed. Patient reports good sleep and fair appetite. She has been taking her medications and denies side effects. Patient talked about going home with her , and she plans to talk to her today during visiting time to take her back home tomorrow. Objective: Vitals has been reviewed. Mental status examination; Appearance: The patient appears stated age, adequately groomed and dressed, no specific features. Gait/posture: Normal gait, Normal arm swinging: No abnormal movements. Attitude and behavior: engaged, cooperative, fair eye contact. Motor activity: Normal psychomotor activity Speech: Normal rate, tone, not pressured. Mood: "Fine" Affect: Appropriate. Thought form: not circumstantial, not tangential, linear and goal directed. Thought content: Non-delusional, denies suicidal thoughts, denies homicidal thoughts, denies intentions or plans. Perception: Denies any auditory or visual hallucinations Attention: No impairment. Orientation: Patient patient was fully oriented to time place person and situation. Insight: Patient has fair insight about his psychiatric disorder. Judgment: Patient has fair judgment about his psychiatric treatment. Assessment: Unspecified psychosis. Rule out schizophrenia. -7 months Plan: Continue inpatient level of care due to need for further stabilization on medications and discharge planning. 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 Precautions: Discontinue one-to-one observation, and keep every 15 minutes check. Consider medical consultation if any acute medical issues arise. Provide the patient individual, group therapy to give better insight and learn coping skills. Medications: Abilify 5 mg daily for psychotic symptoms Discharge patient to OUTPATIENT services upon a stabilization Prognosis: Improving
[2019-11-18] MEDS: ARIPiprazole 5 MG TAB PO SCH (08:57)
[2019-11-18] MEDS: PRENATAL VIT-IRON-FOLIC ACID 1 EACH CAP PO SCH (08:57)
[2019-11-18] MEDS ORDERED: ARIPiprazole 5 MG TAB PO ONE (10:50)
--- NOTE | 2019-11-18 10:57 | P.PN ---
Progress Note - Text Interval history: The patient is found in group she follows me to an interview room. She reports her mood is fine. She states that she would like to be discharged. In reviewing the notes in my absence it appears that the patient was placed on a one-to-one supervision briefly on Monday. A family meeting was conducted involving her . Her indicated that he would continue living with his children at his mother's home and he also felt that the patient was still psychotic. The patient had made statements about covering the TV so she could not be watched at home. Today the patient is guarded she denies having any symptoms. She indicates her moved out because they're doing repairs on the house and they did not want the children in the home for that reason. I was informed that she revoked her release of information consent. She indicates that she has been eating she has been sleeping at night. Mental status exam: The patient is alert she is dressed in her own clothing hygiene grooming adequate. Eye contact is appropriate. Speech is fluent spontaneous nonpressured. She is somewhat perseverative, being focused primarily on discharge. She continues to lack insight into why she was admitted to the hospital. She has recently made statements that she is concerned that she would be watched by others through her TV. Today she has changed her answer and stated that she wanted to cover the TV to keep the dust off of it. She demonstrates no verbal or physical aggressiveness. She demonstrates no abnormal involuntary movements. She is reporting no side effects due to the Abilify. Plan: The patient continues to demonstrate a lack of understanding into why she was admitted I feel she continues to have symptoms of psychosis. At this time the plan will be for her to return home alone which is concerning if she is still psychotic. She requires continued psychiatric hospitalization as I feel she would be unsafe if discharged at this time. She has revoked our ability to speak with her who is her only support this is concerning as well. I will titrate the Abilify to 7.5 mg daily. Ideally we would minimize this medication is much is possible given the fact she is however her symptoms of psychosis need to be further treated. Vital signs reviewed. We will monitor her for safety she is encouraged to continue participating in groups. We will involve her in treatment and discharge planning as she will allow.
[2019-11-19] MEDS: ARIPiprazole 5 MG TAB PO SCH (09:08)
[2019-11-19] MEDS: PRENATAL VIT-IRON-FOLIC ACID 1 EACH CAP PO SCH (09:09)
--- NOTE | 2019-11-19 09:48 | P.PN ---
Progress Note - Text Interval history: The patient is found in the [facility] she follows me to an interview room. She indicates her mood is okay. She inquires as to when she will be discharged. Again we attempted to discuss her presenting symptoms. She states that everything on the petition is "hearsay". She states that whenever is happening between her and her is their business and she has no comment. She states it's not her doctors business either to know what they are doing in their home. She states she will decide if she is going to go to court and fight what was on the petition. Again we reviewed statements that her made that she had threatened his life. She states she did not make those statements and that he lied. She continues to explain that her and children are staying with her [id number] because there is a furnace issue with their own home. Mental status exam: The patient is alert she seated calmly in the chair she is in no physical distress. She reports no physical complaints. She indicates the baby is moving as expected. Hygiene grooming adequate. Eye contact is appropriate. Speech is fluent spontaneous nonpressured. She continues to be perseverative at times focused on the petition. She denies having any auditory or visual hallucinations she will endorse no specific delusions. Again she appears guarded. Throughout the conversation she will say "no comment" or indicate that some things are none of our business. She reports no suicidal or homicidal thoughts. Insight and judgment continued to be impaired. She demonstrates no verbal or physical aggressiveness. She maintains a bland affect throughout the session. Plan: The patient will continue on her current medication we have recently titrated the Abilify. She has been compliant with the medication. Vital signs reviewed they're within normal limits. She requires continued psychiatric hospitalization. Prior to discharge we will involve her again. She is encouraged to continue participating in groups.
[2019-11-19 13:56] VITALS: BMI 25.3
[2019-11-20 07:06] VITALS: BP 111/54; PULSE 89; RESP 16; TEMP 97.8
[2019-11-20] MEDS: ARIPiprazole 5 MG TAB PO SCH (09:45)
[2019-11-20] MEDS: PRENATAL VIT-IRON-FOLIC ACID 1 EACH CAP PO SCH (09:47)
--- NOTE | 2019-11-20 10:55 | P.DS ---
Providers Date of admission: 11/05/19 20:24 Expected date of discharge: 11/20/19 Attending physician: Akhil Peña Consults: 11/05/19 20:54 Consult Physician Routine Consulting Provider: Ramez Duggan Consult Reason/Comments: H&P and medical Do you want consulting provider notified?: Yes 11/06/19 14:13 Consult Physician Routine Consulting Provider: Gayla Lynn Consult Reason/Comments: OB Consult for mental health unit 7 months Do you want consulting provider notified?: Yes Primary care physician: Wilmar Serna - Discharge Diagnosis(es) (1) Psychosis Current Visit: Yes Status: Acute Priority: High Hospital Course: Brief summary of admission note: This patient is a 39-year-old [place] Afghan female who was admitted to the mental health unit on a pickup order for reported symptoms of psychosis. The patient's had completed a petition indicating she was experiencing acute symptoms of psychosis. He alleges that she made threats to kill him by cutting his throat while he slept or stabbing him. The patient's had informed me that the patient had had symptoms of psychosis for the past 3 years. It seemed to be intensifying more over the last several months and he became concerned when she was threatening. He indicated that she will frequently talk to herself get angry and starts screaming. He stated that she had thoughts that people were out to get her including people on a TV show called [employer]. She frequently described that people were outside of the home and she felt that she was being watched by [employer] patrol. Due to his concerns he states he had moved himself and the children out of the home and they have been staying down the street with his mother. For full details please refer to the psychiatric evaluation dated 11/06/2019. Summary of hospital course: The patient was admitted to the mental health unit in voluntarily. A deferral conference was held and she defer a court hearing. She has been seen by her bobbin cleaner hand Dr. Lynn. She was seen by internal medicine for routine history and physical exam. The patient was unwilling to take any medication until we filed for the court to intervene. She later consented to taking Abilify. Abilify was started at 5 mg and was more recently titrated to 7.5 mg. We are trying to use a medication that may demonstrate efficacy but trying to minimize the dose as well due to her . The patient has been attending groups she has demonstrated no aggressive or violent behavior. She has been eating she has been attending to her ADLs. She did participate in a meeting involving her last week and he felt that she was still psychotic and required further treatment. We do have a family meeting scheduled for this morning with him again. At this point she denies having any suicidal thoughts or homicidal thoughts she is endorsing no auditory or visual nations she endorses no specific delusions. It is possible that she does continue to have some residual symptoms of psychosis but they appear attenuated from when she was admitted. She is agreeable to continuing the medication as an outpatient she is aware of her responsibility as part of the deferral agreement she indicates she will attend outpatient treatment at [facility]. I was informed at her first appointment is tomorrow morning. Mental status exam: The patient is a [place] female appearing her stated age. She is dressed in her own clothing hygiene grooming adequate. She appears 7 months . She reports her mood is good affect demonstrates some range. She does have some appropriate smiling. She reports she does not feel depressed or anxious. She is reporting no hopelessness thinking she reports no suicidal ideation intent or plan. She states that she has no thoughts of harming or killing anyone. Specifically she denies having any thoughts of harming or killing her children or . She demonstrates no verbal or physical aggressiveness. She reports no auditory or visual hallucinations at this time she reports no specific delusions. She may still have some paranoid thinking that she is not disclosing. She demonstrates no tangential thinking loose associations or flight of ideas. She can be perseverative at times specifically when discussing the petition and clinical certificate. Insight and judgment have improved in that she is now taking a prescribed medication and is willing to adhere to the terms of the deferral agreement. She demonstrates no involuntary repetitive movements. She remains oriented to person place and date. She reports future oriented thinking. Impressions 1. Psychosis unspecified 2. Patient is currently 7 months Plan: The patient will be discharged today following a successful family meeting involving her . She will continue on Abilify 7.5 mg daily this medication may require further titration. She will follow up with [facility] and I was informed that she has an appointment tomorrow morning. She will follow-up with her bobbin cleaner hand as well as internal medicine physician as needed. She has no reported history of using alcohol marijuana or illicit drugs. At this time there is no imminent safety risk she is appropriate for transition back to outpatient care. She is instructed to return to the hospital if any acute safety concerns. Patient Condition at Discharge: Stable Plan - Discharge Summary New Discharge Prescriptions: New ARIPiprazole [Abilify] 7.5 mg PO DAILY #45 tab Continue Rrb-Aejt-Vmlei Acid [-U Capsule (formulary)] 1 cap PO DAILY Discharge Medication List Fpa-Buky-Zxkne Acid [-U Capsule (formulary)] 1 cap PO DAILY 11/05/19 [History] ARIPiprazole [Abilify] 7.5 mg PO DAILY #45 tab 11/20/19 [Rx] Follow up Appointment(s)/Referral(s): Intake, Intake [Other] - 11/22/19 9:00 am (November 22, 2019 9:00 am with Allie) Wilmar Serna MD [Primary Care Provider] - 1-2 days Activity/Diet/Wound Care/Special Instructions: Activity and diet as tolerated. Avoid the use of street drugs and alcohol. Take all medications as prescribed. When you are in need of refills on your medications please contact your medical provider and/or outpatient psychiatrist to have this done. Please go to scheduled outpatient appointment for aftercare treatment. If symptoms return or become worse, call the crisis line at and/or go to the nearest emergency room for evaluation.
== END 2019-11-20 11:35 | disposition home or self-care (01) | DRG 832 ==
LOC: EC 17:24 → 3MHU 20:24
PROVIDERS: ADMIT Psychiatry & Neurology Psychiatry; ATTEND Psychiatry & Neurology Psychiatry
DX: O99.343 Other mental disorders complicating pregnancy, third trimester (principal); F23 Brief psychotic disorder; O26.613 Liver and biliary tract disorders in pregnancy, third trimester; O09.523 Supervision of elderly multigravida, third trimester; O99.013 Anemia complicating pregnancy, third trimester; D50.9 Iron deficiency anemia, unspecified; K80.20 Calculus of gallbladder without cholecystitis without obstruction; Z3A.30 30 weeks gestation of pregnancy
CPT/HCPCS: 76705; 80053; 80061; 80306; 82728; 83036; 83540; 83550; 84443; 85025; 99285

== ENCOUNTER 2019-12-09 14:07 | Inpatient (IN) | payer OTHER ==
[2019-12-09] MEDS ORDERED: OXYTOCIN 10 UNIT/ML 1 ML VIAL IM PRN (15:00)
[2019-12-09] MEDS ORDERED: CARBOPROST TROMETHAMINE 250 MCG/ML 1 ML AMP IM PRN (15:00)
[2019-12-09] MEDS ORDERED: LIDOCAINE 0.5% (PF) 5 MG/ML (50 ML SDV) SQ PRN (15:00)
[2019-12-09] MEDS ORDERED: TERBUTALINE 1 MG/ML VIAL SQ PRN (15:00)
[2019-12-09] MEDS ORDERED: METHYLERGONOVINE 0.2 MG/ML 1 ML AMP IM PRN (15:00)
[2019-12-09] MEDS ORDERED: OXYTOCIN 30 UNITS/500 ML NS 30 UNIT in SALINE 1 500ML.BAG IV SCH (15:00)
[2019-12-09] MEDS ORDERED: AMPICILLIN 2,000 MG in SODIUM CHLORIDE 0.9% 100 ML IVPB STA (15:00)
[2019-12-09] MEDS: LACTATED RINGERS 1,000 ML IV SCH ×2 (15:40→20:35)
[2019-12-09 16:23] LABS: HGB 8.4 gm/dL (11.4-16.0); Hypochromasia Marked; MCH 25.2 pg (25.0-35.0); MCHC 31.1 g/dL (31.0-37.0); Platelet Count 426 k/uL (150-450); Poikilocytosis Slight; RBC 3.33 m/uL (3.80-5.40); RDW 15.7 % (11.5-15.5); WBC 9.6 k/uL (3.8-10.6)
[2019-12-09 16:26] LABS: MCV 81.2 fL (80.0-100.0)
[2019-12-09 17:03] LABS: Eosinophils # (M) 0.19 k/uL (0-0.7); Lymphocytes # (M) 0.67 k/uL (1.0-4.8); Monocytes # (M) 0.29 k/uL (0-1.0); Neutrophils # (M) 8.45 k/uL (1.3-7.7); Neutrophils % (M) 88 %; Nucleated Red Blood Cells 0 /100 WBC (0-0); Total Cells Counted 100
[2019-12-09 17:04] LABS: Anisocytosis (M) Present
[2019-12-09] MEDS: AMPICILLIN 1,000 MG in SODIUM CHLORIDE 0.9% 50 ML IVPB SCH (19:32)
[2019-12-09] MEDS ORDERED: LANOLIN CREAM 5 GM TUBE TOPICAL PRN (20:55)
[2019-12-09] MEDS ORDERED: ZOLPIDEM 5 MG TAB PO PRN (20:55)
[2019-12-09] MEDS ORDERED: IBUPROFEN 600 MG TAB PO PRN (20:55)
[2019-12-09] MEDS ORDERED: diphenhydrAMINE 50 MG/ML 1 ML VIAL IVP PRN ×2 (20:55)
[2019-12-09] MEDS ORDERED: diphenhydrAMINE 50 MG CAP PO PRN (20:55)
[2019-12-09] MEDS ORDERED: SIMETHICONE 80 MG CHEWABLE PO PRN (20:55)
[2019-12-09] MEDS ORDERED: BENZOCAINE/MENTHOL SPRAY 1 GM/SPRAY AEROSOL TOPICAL PRN (20:55)
[2019-12-09] MEDS ORDERED: HYDROCORTISONE 2.5% RECTAL CREAM 30 GM TUBE RECTAL PRN (20:55)
[2019-12-09] MEDS ORDERED: diphenhydrAMINE 25 MG CAP PO PRN (20:55)
[2019-12-09] MEDS ORDERED: WITCH HAZEL 1 EACH MED..PAD TOPICAL PRN (20:55)
[2019-12-09] MEDS ORDERED: ACETAMINOPHEN TAB 325 MG TAB PO PRN (20:55)
[2019-12-09] MEDS ORDERED: OXYTOCIN 20 UNITS/1000 ML NS 1,000 ML IV SCH (21:00)
[2019-12-09] MEDS: ARIPiprazole 5 MG TAB PO SCH (21:04)
[2019-12-10] MEDS: AMPICILLIN 1,000 MG in SODIUM CHLORIDE 0.9% 50 ML IVPB SCH (05:56)
[2019-12-10 06:19] LABS: Basophils % (A) 0 %; Eosinophils # (A) 0.2 k/uL (0-0.7); Eosinophils % (A) 1 %; HCT 24.7 % (34.0-46.0); HGB 7.6 gm/dL (11.4-16.0); Hypochromasia Marked; Lymphocytes # (A) 2.2 k/uL (1.0-4.8); Lymphocytes % (A) 12 %; MCH 24.9 pg (25.0-35.0); MCHC 30.8 g/dL (31.0-37.0); MCV 80.9 fL (80.0-100.0); Mean Platelet Volume 9.5; Monocytes # (A) 0.8 k/uL (0-1.0); Monocytes % (A) 4 %; Neutrophils # (A) 13.8 k/uL (1.3-7.7); Neutrophils % (A) 80 %; Platelet Count 350 k/uL (150-450); Poikilocytosis Slight; RBC 3.05 m/uL (3.80-5.40); RDW 15.8 % (11.5-15.5); WBC 17.3 k/uL (3.8-10.6)
[2019-12-10 06:36] LABS: Target Cells Present
[2019-12-10 06:37] LABS: Large Platelets Present; Polychromasia Present
--- NOTE | 2019-12-10 08:29 | P.HPOB ---
History of Present Illness H&P Date: 12/09/19 Chief Complaint: SROM 39-year-old presents at 35 weeks and 6 days with spontaneous rupture membranes at 11:45 AM. When she presented to labor and delivery her cervix is 3 cm dilated, 80% effaced, and -2 station. She is semaj irregularly. heart tones 130 with moderate variability and reactive. Review of Systems All systems: negative Constitutional: Denies chills, Denies fever Eyes: denies blurred vision, denies pain Ears, nose, mouth and throat: Denies headache, Denies sore throat Cardiovascular: Denies chest pain, Denies shortness of breath Respiratory: Denies cough Gastrointestinal: Denies abdominal pain, Denies diarrhea, Denies nausea, Denies vomiting Genitourinary: Denies dysuria, Denies hematuria Musculoskeletal: Denies myalgias Integumentary: Denies pruritus, Denies rash Neurological: Denies numbness, Denies weakness Psychiatric: Denies anxiety, Denies depression Endocrine: Denies fatigue, Denies weight change Past Medical History Past Medical History: No Reported History Additional Past Medical History / Comment(s): Obstetric history: She has had 2 vaginal deliveries, and one spontaneous . This is her fourth . She's had care with me since the first trimester. Blood type is A+, amylase negative, rubella immune, hepatitis B-, GBS positive, RPR nonreactive. She did have psychosis during this and was admitted to mental health, placed on Abilify. History of Any Multi-Drug Resistant Organisms: None Reported Past Surgical History: No Surgical Hx Reported Past Psychological History: No Psychological Hx Reported Smoking Status: Light tobacco smoker Past Alcohol Use History: None Reported Past Drug Use History: None Reported - Past Family History Mother Family Medical History: No Reported History Medications and Allergies Home Medications Medication Instructions Recorded Confirmed Type Tmi-Izxf-Zetcy Acid 1 cap PO DAILY 11/05/19 12/09/19 History [-U Capsule (formulary)] ARIPiprazole [Abilify] 7.5 mg PO DAILY #45 tab 11/20/19 12/09/19 Rx Allergies Allergy/AdvReac Type Severity Reaction Status Date / Time No Known Allergies Allergy Verified 12/09/19 14:50 Exam Osteopathic Statement: *. No significant issues noted on an osteopathic structural exam other than those noted in the History and Physical/Consult. Vital Signs Temp Pulse Resp BP 12/10/19 04:00 98.2 F 88 16 115/73 12/10/19 00:00 98.4 F 75 16 115/67 12/09/19 22:53 84 16 120/61 12/09/19 22:23 87 16 125/69 12/09/19 21:53 73 16 132/69 12/09/19 21:38 76 16 127/65 12/09/19 21:23 82 16 128/68 12/09/19 21:08 73 16 121/62 12/09/19 20:56 98.8 F 99 16 140/60 12/09/19 16:03 97.9 F 86 16 106/62 12/09/19 14:19 97.9 F 86 16 106/62 Intake and Output 12/09/19 12/10/19 12/10/19 22:59 06:59 14:59 Other: # Voids 1 1 Weight 54.431 kg Heart: Regular rate and rhythm Lungs: Clear to auscultation bilaterally Abdomen: Soft, nontender Extremities: Negative Homans sign Results Result Diagrams: 12/10/19 05:46 Abnormal Lab Results - Last 24 Hours (Table) 12/09/19 12/10/19 Range/Units 15:24 05:46 WBC 17.3 H (3.8-10.6) k/uL RBC 3.33 L 3.05 L (3.80-5.40) m/uL Hgb 8.4 L 7.6 L (11.4-16.0) gm/dL Hct 27.0 L 24.7 L (34.0-46.0) % MCH 24.9 L (25.0-35.0) pg MCHC 30.8 L (31.0-37.0) g/dL RDW 15.7 H 15.8 H (11.5-15.5) % Neutrophils # 13.8 H (1.3-7.7) k/uL Neutrophils # (Manual) 8.45 H (1.3-7.7) k/uL Lymphocytes # (Manual) 0.67 L (1.0-4.8) k/uL Assessment and Plan (1) Spontaneous rupture of membranes Current Visit: Yes Status: Acute Code(s): [id number] - SNOMED Code(s): 594894196 Plan: 1. Admit to family place 2. Ampicillin for GBS prophylaxis 3. Pitocin augmentation 4. Anticipate normal vaginal delivery
--- NOTE | 2019-12-10 08:31 | P.PROBDLV ---
Vaginal Delivery Note - . Vaginal Delivery Note: 39-year-old G for P2 presents at 35 weeks and 6 days' was spent 8 rupture membranes at 11:45 AM. When she presented to labor and delivery her cervix was 3 cm dilated, 80% effaced, and -2 station. She is semaj irregularly. heart tones 130 with moderate variability and reactive. Ampicillin was started for GBS prophylaxis and Pitocin augmentation was also started. Her cervix was completely dilated at 2020. She pushed, delivered a viable female over intact perineum at 2038. Head delivered OA, anterior shoulder delivered gentle downward guidance followed by posterior shoulder and rest of body. Nose and mouth bulb suctioned, cord clamped and cut, infant placed on mother's abdomen. Apgars 9, 9, weight 5 lbs. 10 oz. Placenta delivered spontaneously, intact with three-vessel cord at 2041. Vagina, cervix, and perineum were inspected. No lacerations noted. She did have a few gushes of blood and was given some Methergine as well as Pitocin through the IV. Estimated blood loss 800 mL. Mother and baby in stable condition.
--- NOTE | 2019-12-10 08:32 | P.PNOBGVD ---
Subjective - Subjective Principal diagnosis: Status post normal vaginal delivery day #1 Interval history: Patient seen and examined. Denies nausea, vomiting, chest pain, shortness of breath or calf pain. Her hemoglobin is 7.6 down from 8.4 yesterday. Patient reports: Reports appetite normal, Reports voiding normally, Reports pain well controlled, Reports ambulating normally : doing well Objective - Latest Vital Signs Latest vital signs: Vital Signs Temp Pulse Resp BP 12/10/19 08:00 98.6 F 72 16 110/70 12/10/19 04:00 98.2 F 88 16 115/73 12/10/19 00:00 98.4 F 75 16 115/67 12/09/19 22:53 84 16 120/61 12/09/19 22:23 87 16 125/69 12/09/19 21:53 73 16 132/69 12/09/19 21:38 76 16 127/65 12/09/19 21:23 82 16 128/68 12/09/19 21:08 73 16 121/62 12/09/19 20:56 98.8 F 99 16 140/60 12/09/19 16:03 97.9 F 86 16 106/62 12/09/19 14:19 97.9 F 86 16 106/62 Intake and Output 12/09/19 12/10/19 12/10/19 22:59 06:59 14:59 Other: # Voids 1 1 Weight 54.431 kg - Exam Lungs: bilateral: normal Chest: Normal S1, Normal S2 Extremities: Present: normal Abdomen: Present: normal appearance, soft Uterus: Present: normal, firm - Labs Labs: Abnormal Lab Results - Last 24 Hours (Table) 12/09/19 12/10/19 Range/Units 15:24 05:46 WBC 17.3 H (3.8-10.6) k/uL RBC 3.33 L 3.05 L (3.80-5.40) m/uL Hgb 8.4 L 7.6 L (11.4-16.0) gm/dL Hct 27.0 L 24.7 L (34.0-46.0) % MCH 24.9 L (25.0-35.0) pg MCHC 30.8 L (31.0-37.0) g/dL RDW 15.7 H 15.8 H (11.5-15.5) % Neutrophils # 13.8 H (1.3-7.7) k/uL Neutrophils # (Manual) 8.45 H (1.3-7.7) k/uL Lymphocytes # (Manual) 0.67 L (1.0-4.8) k/uL Assessment and Plan (1) Spontaneous rupture of membranes Current Visit: Yes Status: Resolved Code(s): TAE6451 - SNOMED Code(s): 502157545 (2) Normal vaginal delivery Current Visit: Yes Status: Acute Code(s): O80 - ENCOUNTER FOR FULL-TERM UNCOMPLICATED DELIVERY SNOMED Code(s): 51621362 Plan: 1. Increase ambulation 2. Continue care
[2019-12-10] MEDS: ARIPiprazole 5 MG TAB PO SCH (21:15)
[2019-12-10] MEDS: SENNOSIDES-DOCUSATE SODIUM 1 EACH TAB PO SCH (21:48)
--- NOTE | 2019-12-11 08:16 | P.DS ---
Providers Date of admission: 12/09/19 14:39 Expected date of discharge: 12/11/19 Attending physician: Gayla Lynn Primary care physician: Stated None - Discharge Diagnosis(es) (1) Spontaneous rupture of membranes Current Visit: Yes Status: Resolved (2) Normal vaginal delivery Current Visit: Yes Status: Acute Hospital Course: Patient presented with spontaneous rupture of membranes at 35 weeks and 6 days. She underwent a normal vaginal delivery. Of note, During her labor process I did see her turned to her left, looked at the wall and then into space and start talking to herself and laugh. she did need 1 dose Methergine to help with bleeding. Her hemoglobin only dropped from 8.4 to 7.6. She is having no signs or symptoms of anemia. She denies nausea, vomiting, chest pain, shortness of breath or calf pain. She is trying to breast-feed and bottlefeed. She will be discharged home day #2 in stable condition to follow-up with me in 6 weeks. I did advise her that she still needs to follow-up with [facility] and continue her Abilify. Social work did come by to see her and made a CPS report as the does not feel that Laura should be left alone with the baby. I also have some concerns and voiced them to the social staff worker, Leticia. Plan - Discharge Summary New Discharge Prescriptions: No Action [id number] Acid [-U Capsule (formulary)] 1 cap PO DAILY ARIPiprazole [Abilify] 7.5 mg PO DAILY #45 tab Discharge Medication List [id number] Acid [-U Capsule (formulary)] 1 cap PO DAILY 11/05/19 [History] ARIPiprazole [Abilify] 7.5 mg PO DAILY #45 tab 11/20/19 [Rx]
--- NOTE | 2019-12-11 08:17 | P.MSEPDOC ---
Presenting Problems - Arrival Data Date of Arrival on Unit: 12/09/19 Time of Arrival on Unit: 15:00 Mode of Transport: Ambulatory - Complaint OB-Reason for Admission/Chief Complaint: Rule Out PROM Comment: ROM 1145, green tinged fluid Medical History - Information : 4 Para: 2 Term: 0 : 0 Abortions: Spontaneous or Elective: 1 Number of Living Children: 2 - Gestational Age Gestational Age by KONSTANTIN (wks/days): 35 Weeks and 6 Days - History Complications: GBS+ Review of Systems - Review of Systems Constitutional: No problems Breast: No problems ENT: No problems Cardiovascular: No problems Respiratory: No problems Gastrointestinal: No problems Genitourinary: No problems Musculoskeletal: No problems Neurological: No problems Skin: No problems Vital Signs - Temperature Temperature: 98.4 F Temperature Source: Oral - Pulse Right Sitting Pulse Rate: 61 Pulse Assessment Method: Automatic Cuff - Respirations Respiratory Rate: 14 Oxygen Delivery Method: Room Air O2 Sat by Pulse Oximetry: 100 - Blood Pressure Right Arm Blood Pressure: 114/75 Blood Pressure Mean: 88 Blood Pressure Source: Automatic Cuff Medical Screen Scoring (Pre) - Cervical Exam Dilation: 1-3 cm = 1 Effacement: More than 50% = 2 Membranes: Ruptured = 3 - Uterine Contractions Frequency: N/A Duration: N/A Intensity: N/A - Maternal Vital Signs Maternal Temperature: N/A Maternal Blood Pressure: N/A Signs of Preeclampsia: N/A Maternal Respirations: N/A - Maternal Trauma Maternal Trauma: N/A - Assessment - Baby A Baseline FHR: 120 Heart Rate - NICHD Category: Category I (Normal) = 0 NST: Reactive Position: N/A Station: N/A - Total Score - Baby A Total Score - Baby A: 6 - Total Score - Baby B Total Score - Baby B: 6 - Total Score - Baby C Total Score - Baby C: 6 - Level of Risk - Baby A Level of Risk - Baby A: Medium (6-9) - Level of Risk - Baby B Level of Risk - Baby B: Medium (6-9) - Level of Risk - Baby C Level of Risk - Baby C: Medium (6-9) Physician Notification (Pre) - Physician Notified Physician Notified Date: 12/09/19 Physician Notified Time: 15:00 New Order Received: Yes (admit for labor) Disposition - Disposition OB Disposition: Admit I agree with the RN Medical Screening Exam: Yes Risk & Benefit of care provided described in d/c instruction: Yes Diagnosis: ENCOUNTER FOR FULL-TERM UNCOMPLICATED DELIVERY
[2019-12-11] MEDS: SENNOSIDES-DOCUSATE SODIUM 1 EACH TAB PO SCH (09:18)
[2019-12-11] MEDS: ARIPiprazole 5 MG TAB PO SCH (09:18)
[2019-12-11 16:25] VITALS: BP 133/73; PULSE 70; RESP 20; TEMP 98.2
== END 2019-12-11 17:30 | disposition home or self-care (01) | DRG 807 ==
LOC: FBPOP 14:07 → 4FBP 14:39
PROVIDERS: ADMIT Obstetrics & Gynecology; ATTEND Obstetrics & Gynecology
PROC: 10E0XZZ Delivery of Products of Conception, External Approach (ICD-10-PCS; principal; 2019-12-09)
DX: O99.824 Streptococcus B carrier state complicating childbirth (principal); Z37.0 Single live birth; O99.334 Smoking (tobacco) complicating childbirth; F17.200 Nicotine dependence, unspecified, uncomplicated; Z3A.35 35 weeks gestation of pregnancy
CPT/HCPCS: 85025; 86850; 86900; 86901; 88307

== ENCOUNTER 2020-01-24 12:21 | Inpatient (IN) | payer MEDICAID, OTHER ==
--- NOTE | 2020-01-24 13:12 | ED ---
General Adult HPI - General Chief complaint: Psychiatric Symptoms Stated complaint: Mental health eval-petitioned by [facility] Time Seen by Provider: 01/24/20 12:48 Source: patient, police, RN notes reviewed, old records reviewed Mode of arrival: ambulatory Limitations: no limitations - History of Present Illness Initial comments: 39-year-old presenting for court ordered psychiatric evaluation. Patient had court petition. He came that she's been noncompliant with treatment plans. Patient denying any complaints, she was brought in by local police, she was cooperative. She denies auditory or visual hallucinations. She denies suicidal or homicidal ideation. No complaints. - Related Data Home Medications Medication Instructions Recorded Confirmed ARIPiprazole [Abilify Maintena] 400 mg IM Q28D 01/24/20 01/24/20 Allergies Allergy/AdvReac Type Severity Reaction Status Date / Time No Known Allergies Allergy Verified 01/24/20 12:42 Review of Systems ROS Statement: Those systems with pertinent positive or pertinent negative responses have been documented in the HPI. ROS Other: All systems not noted in ROS Statement are negative. Past Medical History Past Medical History: No Reported History Additional Past Medical History / Comment(s): Obstetric history: She has had 2 vaginal deliveries, and one spontaneous . This is her fourth . She's had care with me since the first trimester. Blood type is A+, amylase negative, rubella immune, hepatitis B-, GBS positive, RPR nonreactive. She did have psychosis during this and was admitted to mental health, placed on Abilify. History of Any Multi-Drug Resistant Organisms: None Reported Past Surgical History: No Surgical Hx Reported Past Psychological History: Anxiety, Depression Smoking Status: Light tobacco smoker Past Alcohol Use History: None Reported Past Drug Use History: None Reported - Past Family History Mother Family Medical History: No Reported History General Exam Limitations: no limitations General appearance: alert, in no apparent distress Head exam: Present: atraumatic, normocephalic Eye exam: Present: normal appearance, PERRL ENT exam: Present: normal exam Neck exam: Present: normal inspection. Absent: tenderness, meningismus Respiratory exam: Present: normal lung sounds bilaterally. Absent: respiratory distress, wheezes Cardiovascular Exam: Present: regular rate, normal rhythm GI/Abdominal exam: Present: soft. Absent: distended, tenderness Extremities exam: Present: normal inspection, normal capillary refill. Absent: pedal edema Neurological exam: Present: alert, oriented X3, CN II-XII intact. Absent: motor sensory deficit Psychiatric exam: Present: normal affect, normal mood. Absent: homicidal ideation, suicidal ideation Skin exam: Present: warm, dry, intact. Absent: cyanosis, diaphoretic Course Vital Signs 01/24/20 12:37 Temperature 98.3 F Pulse Rate 76 Respiratory 20 Rate Blood Pressure 133/78 O2 Sat by Pulse 99 Oximetry Medical Decision Making - Medical Decision Making Patient brought in under court ordered psychiatric evaluation. Patient medically cleared and evaluated by EPS. She will require inpatient psychiatric care. She will be admitted to this institution. - Lab Data Lab Results 01/24/20 01/24/20 Range/Units 14:07 14:07 Urine Color Light Yellow Urine Appearance Cloudy H (Clear) Urine pH 6.0 (5.0-8.0) Ur Specific [place] 1.009 (1.001-1.035) Urine Protein Negative (Negative) Urine Glucose (UA) Negative (Negative) Urine Ketones Negative (Negative) Urine Blood Negative (Negative) Urine Nitrite Negative (Negative) Urine Bilirubin Negative (Negative) Urine Urobilinogen <2.0 (<2.0) mg/dL Ur Leukocyte Esterase Large H (Negative) Urine RBC 5 (0-5) /hpf Urine WBC 34 H (0-5) /hpf Ur Squamous Epith Cells 4 (0-4) /hpf Urine Mucus Rare H (None) /hpf Urine HCG, Qual Not Detected (Not Detectd) Disposition Clinical Impression: Psychosis, Acute psychosis Disposition[facility] Condition: Stable Is patient prescribed a controlled substance at d/c from ED?: No Referrals: Wilmar Serna MD [Primary Care Provider] - 1-2 days Decision to Admit Reason: Admit from EC Decision Date: 01/24/20 Decision Time: 15:18
[2020-01-24 14:28] LABS: Appearance,Urine Cloudy (Clear); Bilirubin,Urine Negative (Negative); Blood,Urine Negative (Negative); Color,Urine Light Yellow; Glucose,Urine (UA) Negative (Negative); Ketones,Urine Negative (Negative); Leukocyte Esterase,Urine Large (Negative); Mucus,Urine Rare /hpf; Nitrite,Urine Negative (Negative); Protein,Urine Negative (Negative); RBC,Urine 5 /hpf (0-5); Specific Gravity,Urine 1.009 (1.001-1.035); Squamous Epithelial Cell,Urine 4 /hpf (0-4); Urobilinogen,Urine <2.0 mg/dL (<2.0); WBC,Urine 34 /hpf (0-5)
[2020-01-24] MEDS ORDERED: MAGNESIUM HYDROXIDE 2,400 MG/10 ML CUP PO PRN (15:32)
[2020-01-24] MEDS ORDERED: ACETAMINOPHEN TAB 325 MG TAB PO PRN (15:32)
[2020-01-24] MEDS ORDERED: MAG HYDROX/AL HYDROX/SIMETH 30 ML CUP PO PRN (15:32)
[2020-01-24] MEDS ORDERED: hydrOXYzine PAMOATE 25 MG CAP PO PRN (15:36)
[2020-01-24] MEDS ORDERED: traZODone HCL 50 MG TAB PO PRN (15:37)
[2020-01-24 16:05] LABS: Amphetamine Screen,Urine Not Detected (NotDetected); Barbiturate Screen,Urine Not Detected (NotDetected); Benzodiazepines Screen,Urine Not Detected (NotDetected); Cocaine Screen,Urine Not Detected (NotDetected); Methadone Screen, Urine Not Detected (NotDetected); Opiate Screen,Urine Not Detected (NotDetected); Oxycodone Screen, Urine Not Detected (NotDetected); Phencyclidine Screen,Urine Not Detected (NotDetected); Tricyclic Antidepressant,Urine Not Detected (NotDetected); Urn Cannabinoid Scrn Not Detected (NotDetected)
[2020-01-24] MEDS: OLANZapine ODT 5 MG TAB PO SCH (21:24)
[2020-01-25 08:14] LABS: Anisocytosis Slight; Basophils # (A) 0.1 k/uL (0-0.2); Basophils % (A) 2 %; Eosinophils # (A) 0.5 k/uL (0-0.7); Eosinophils % (A) 8 %; HGB 10.1 gm/dL (11.4-16.0); Hypochromasia Marked; Lymphocytes # (A) 1.5 k/uL (1.0-4.8); Lymphocytes % (A) 25 %; MCH 23.8 pg (25.0-35.0); MCHC 29.6 g/dL (31.0-37.0); MCV 80.4 fL (80.0-100.0); Mean Platelet Volume 7.8; Microcytosis Slight; Monocytes # (A) 0.4 k/uL (0-1.0); Monocytes % (A) 6 %; Neutrophils # (A) 3.3 k/uL (1.3-7.7); Neutrophils % (A) 56 %; Platelet Count 409 k/uL (150-450); RBC 4.22 m/uL (3.80-5.40); RDW 19.5 % (11.5-15.5); WBC 5.9 k/uL (3.8-10.6)
[2020-01-25 08:27] LABS: Cholesterol 165 mg/dL (<200); HDL Cholesterol 45 mg/dL (40-60); LDL Cholesterol,Calculated 101 mg/dL (0-99); Triglycerides 97 mg/dL (<150)
[2020-01-25 08:38] LABS: ALT 18 U/L (4-34); AST 30 U/L (14-36); African American GFR (CKD) >90 (>60 ml/min/1.73 sqM); Albumin 4.1 g/dL (3.5-5.0); Alkaline Phosphatase 58 U/L (38-126); Anion Gap 6 mmol/L; Bilirubin,Unconjugated 0.4 mg/dL (0.0-1.1); Blood Urea Nitrogen 14 mg/dL (7-17); Calcium 9.3 mg/dL (8.4-10.2); Carbon Dioxide 27 mmol/L (22-30); Chloride 103 mmol/L (98-107); Glucose 81 mg/dL (74-99); Non-African American GFR(CKD) >90 (>60 ml/min/1.73 sqM); Potassium 4.3 mmol/L (3.5-5.1); Sodium 136 mmol/L (137-145); Total Bilirubin 0.4 mg/dL (0.2-1.3); Total Protein 7.7 g/dL (6.3-8.2)
[2020-01-25] MEDS: OLANZapine ODT 5 MG TAB PO SCH ×2 (09:07→22:14)
--- NOTE | 2020-01-25 11:52 | P.HP ---
Psychiatric H&P - . H&P Date: 01/25/20 History & Physical: IDENTIFYING Data: Laura Box is a 42-year-old [place] female who currently lives with her and 3 children, unemployed, has psychiatric history of psychotic disorder, and no reported medical problems. The patient has been admitted to our inpatient psychiatric services after been transferred from [facility] ED after she was brought in by EMS and police because the patient is not compliant with her outpatient psychiatric treatment as been reported by legal papers. CHIEF COMPLAINT: "I don't know why I am here." HISTORY OF PRESENT ILLNESS: As per ED note: "Patient had court petition. she's been noncompliant with treatment plans. Patient denying any complaints, she was brought in by local police, she was cooperative. She denies auditory or visual hallucinations. She denies suicidal or homicidal ideation. No complaints." Patient was evaluated today, she presented calm and cooperative and oriented to time, place, person and situation with organized thoughts and behavior. Patient reports have been compliant with her outpatient psychiatric appointments and her psych medications so she doesn't know why they brought her back to the hospital. Court papers didn't explain other than the patient was not compliant with her outpatient psychiatric treatment. Patient reports have been taking her medications as prescribed and she was switched from oral Abilify to HERNANDEZ Abilify which she received first dose on 01/02 and her next injection is due on 01/30. According to ED clinician yesterday, the patient received Abilify Maintana 400 mg im. Patient denies any symptoms of psychosis including hallucinations, paranoid ideation or delusions. No delusions could be elicited and patient doesn't present responding to internal stimuli. Patient denies any feeling depressed, hopeless or suicidal and denies any other mood symptoms including irritability, severe mood swings, or anger problems. She denies any severe anxiety or panic attacks. Patient denies any sleep or apatite problems. She denies any manic symptoms including euphoric mood, lack need to sleep due to unusual increased activities, irrational or impulsive behavior. Patient denies any nightmares, flashbacks, self-injury, suicidal or homicidal thoughts. PAST PSYCHIATRIC HISTORY: Previous diagnoses: Psychosis unspecified. Previous psychiatric hospitalizations: One time at this unit last October, Discharged on Abilify 7.5 mg daily. Patient was at that time and she gave on 12/09/19. Patient is not breast feeding. She was switched from oral Abilify to maintaina and as per the patient received first dose on 01/02 Previous suicide attempts: Denies. Previous outpatient psychiatric treatment: Currently connected with [facility] Dr. Cavazos as per the patient. Current psychiatric medications: Abilify Maintana 400 mg im . Previous medication trials: none. SUBSTANCE ABUSE HISTORY: Denies any current smoking or using tobacco product. Denies using marijuana or drinking alcohol. Denies use of any other street drugs and denies any history of IVDU or previous AIDEN treatment. Social History: Patient was born in [place] and moved [place] as an [place]. Housing: Currently lives with her and 3 children. She has 9 YO son, 7 year old girl and one month-old girl. Education: Patient reports attaining an educational level of bachelor degree in business. Currently not employed History of psychological trauma: Denies FAMILY HISTORY: Psychiatric Illness: Denies . Substance abuse: Denies . Completed Suicides: Denies. Medical History: Denies and no KNDA MENTAL STATUS EVALUATION: Appearance: Appears stated age, fairly groomed, average body built, and no specific features. Gait/ posture: Steady gait, normal arm swinging, no abnormal movements, with relaxed posture. Attitude and Behavior: engaged, cooperative but to some degree superfical in her answers, fair eye contact during course of interview. Motor Activity: normal psychomotor activity. Speech: spontaneous, slow rate, rhythm, and articulation. normal volume. not pressured. Language: Articulating, naming objects and repeat phrases. Mood: "frustrated" Affect: Restricted. Thought process: Linear, goal-directed. Association: intact, not circumstantial, not tangential. Thought content: Denies delusions, Denies suicidal thoughts, Denies homicidal thoughts, Denies intentions, or plans. Perception: Denies any hallucinations. No RIS Alertness: No impairment. Concentration: fair Orientation: oriented to time, person, place and situation Insight regarding psychiatric condition: Limited as per report of her outpatient psychiatrist pateint is not copmpliant with treatment. Judgment regarding daily activities and social situation: fair Impulse control: fair Strengths: Stable general medical condition Family support- Challenges: Limited coping skills. Allergies Allergy/AdvReac Type Severity Reaction Status Date / Time No Known Allergies Allergy Verified 01/24/20 16:44 Vital Signs Temp 97.9 F 01/25/20 06:57 Pulse 65 01/25/20 06:57 Resp 12 01/25/20 06:57 BP 100/59 01/25/20 06:57 Pulse Ox 100 01/24/20 16:29 Intake & Output 01/24/20 01/25/20 01/25/20 18:59 06:59 18:59 Weight 57.742 kg Review of Lab results: reviewed Laboratory Last Values WBC 5.9 k/uL (3.8-10.6) 01/25/20 07:16 RBC 4.22 m/uL (3.80-5.40) 01/25/20 07:16 Hgb 10.1 gm/dL (11.4-16.0) L 01/25/20 07:16 Hct 34.0 % (34.0-46.0) 01/25/20 07:16 MCV 80.4 fL (80.0-100.0) 01/25/20 07:16 MCH 23.8 pg (25.0-35.0) L 01/25/20 07:16 MCHC 29.6 g/dL (31.0-37.0) L 01/25/20 07:16 RDW 19.5 % (11.5-15.5) H 01/25/20 07:16 Plt Count 409 k/uL (150-450) 01/25/20 07:16 Neutrophils % 56 % 01/25/20 07:16 Lymphocytes % 25 % 01/25/20 07:16 Monocytes % 6 % 01/25/20 07:16 Eosinophils % 8 % 01/25/20 07:16 Basophils % 2 % 01/25/20 07:16 Neutrophils # 3.3 k/uL (1.3-7.7) 01/25/20 07:16 Lymphocytes # 1.5 k/uL (1.0-4.8) 01/25/20 07:16 Monocytes # 0.4 k/uL (0-1.0) 01/25/20 07:16 Eosinophils # 0.5 k/uL (0-0.7) 01/25/20 07:16 Basophils # 0.1 k/uL (0-0.2) 01/25/20 07:16 Hypochromasia Marked 01/25/20 07:16 Anisocytosis Slight 01/25/20 07:16 Microcytosis Slight 01/25/20 07:16 Sodium 136 mmol/L (137-145) L 01/25/20 07:16 Potassium 4.3 mmol/L (3.5-5.1) 01/25/20 07:16 Chloride 103 mmol/L (98-107) 01/25/20 07:16 Carbon Dioxide 27 mmol/L (22-30) 01/25/20 07:16 Anion Gap 6 mmol/L 01/25/20 07:16 BUN 14 mg/dL (7-17) 01/25/20 07:16 Creatinine 0.69 mg/dL (0.52-1.04) 01/25/20 07:16 Est GFR (CKD-EPI)AfAm >90 (>60 ml/min/1.73 sqM) 01/25/20 07:16 Est GFR (CKD-EPI)NonAf >90 (>60 ml/min/1.73 sqM) 01/25/20 07:16 Glucose 81 mg/dL (74-99) 01/25/20 07:16 Calcium 9.3 mg/dL (8.4-10.2) 01/25/20 07:16 Total Bilirubin 0.4 mg/dL (0.2-1.3) 01/25/20 07:16 Conjugated Bilirubin 0.0 mg/dL (0.0-0.3) 01/25/20 07:16 Unconjugated Bilirubin 0.4 mg/dL (0.0-1.1) 01/25/20 07:16 Delta Bilirubin 0.0 mg/dL (0.0-0.2) 01/25/20 07:16 AST 30 U/L (14-36) 01/25/20 07:16 ALT 18 U/L (4-34) 01/25/20 07:16 Alkaline Phosphatase 58 U/L (38-126) 01/25/20 07:16 Total Protein 7.7 g/dL (6.3-8.2) 01/25/20 07:16 Albumin 4.1 g/dL (3.5-5.0) 01/25/20 07:16 Triglycerides 97 mg/dL (<150) 01/25/20 07:16 Cholesterol 165 mg/dL (<200) 01/25/20 07:16 LDL Cholesterol, Calc 101 mg/dL (0-99) H 01/25/20 07:16 HDL Cholesterol 45 mg/dL (40-60) 01/25/20 07:16 TSH 2.370 mIU/L (0.465-4.680) 01/25/20 07:16 Urine Color Light Yellow 01/24/20 14:07 Urine Appearance Cloudy (Clear) H 01/24/20 14:07 Urine pH 6.0 (5.0-8.0) 01/24/20 14:07 Ur Specific [place] 1.009 (1.001-1.035) 01/24/20 14:07 Urine Protein Negative (Negative) 01/24/20 14:07 Urine Glucose (UA) Negative (Negative) 01/24/20 14:07 Urine Ketones Negative (Negative) 01/24/20 14:07 Urine Blood Negative (Negative) 01/24/20 14:07 Urine Nitrite Negative (Negative) 01/24/20 14:07 Urine Bilirubin Negative (Negative) 01/24/20 14:07 Urine Urobilinogen <2.0 mg/dL (<2.0) 01/24/20 14:07 Ur Leukocyte Esterase Large (Negative) H 01/24/20 14:07 Urine RBC 5 /hpf (0-5) 01/24/20 14:07 Urine WBC 34 /hpf (0-5) H 01/24/20 14:07 Ur Squamous Epith Cells 4 /hpf (0-4) 01/24/20 14:07 Urine Mucus Rare /hpf (None) H 01/24/20 14:07 Urine HCG, Qual Not Detected (Not Detectd) 01/24/20 14:07 Urine Opiates Screen Not Detected (NotDetected) 01/24/20 14:07 Ur Oxycodone Screen Not Detected (NotDetected) 01/24/20 14:07 Urine Methadone Screen Not Detected (NotDetected) 01/24/20 14:07 Ur Propoxyphene Screen Not Detected (NotDetected) 01/24/20 14:07 Ur Barbiturates Screen Not Detected (NotDetected) 01/24/20 14:07 U Tricyclic Antidepress Not Detected (NotDetected) 01/24/20 14:07 Ur Phencyclidine Scrn Not Detected (NotDetected) 01/24/20 14:07 Ur Amphetamines Screen Not Detected (NotDetected) 01/24/20 14:07 U Methamphetamines Scrn Not Detected (NotDetected) 01/24/20 14:07 U Benzodiazepines Scrn Not Detected (NotDetected) 01/24/20 14:07 Urine Cocaine Screen Not Detected (NotDetected) 01/24/20 14:07 U Marijuana (THC) Screen Not Detected (NotDetected) 01/24/20 14:07 Assessment: Psychosis, unspecified. TREATMENT PLAN/RECOMMENDATIONS: Medical Decision making: The patient presented to ED because she is non compliant with outpateint treatment and she is currenlty on court order mandating outpatient psychiatric treatment. Therefore, inpatient level of care is needed. Continue the patient inpatient for safety. Continue the patient under 15 minutes safe check for safety. Psych education regarding diagnosis, and treatment option. The patient will also be provided with individual therapy, group therapy, substance abuse counseling, gain insight, and coping skills. Consider medical consultation if any acute medical issue arise. Medications: [facility] - and nursing to verify last dose received and date of next injection. The patient will be assessed on daily basis for his depression, suicidal ideation, and will be discharged back to his outpatient mental health provider upon stabilization. EXPECTED LENGTH OF STAY: 5 days.
[2020-01-25 17:32] LABS: Hemoglobin A1C 4.9 % (4.0-6.0)
--- NOTE | 2020-01-25 20:52 | P.CONS ---
History of Present Illness - Reason for Consult Consult date: 01/25/20 Medical management Requesting physician: Akhil Peña - Chief Complaint Not taking medications - History of Present Illness Consultation: This is a pleasant 39-year-old patient who was here in October 2019. She was 7 months that time. She was admitted with a diagnosis of psychosis. She was treated with Abilify. Initially patient was not taking her medication and the court had to intervene. Patient did deliver a child. She is now admitted patches not been taking her medication as a court order. During the interview patient appears rather, sitting up comfortably. Denies any delusions denies any hallucinations not hearing voices or seeing things. Appetite is fair. No change in his bowels. Spoke to the daughter she has been very cooperative hip. Attending all sessions. Really nothing much to elicit from her. Review of systems: GEN.: None EYES: None HEENT: None NECK: None RESPIRATORY: None CARDIOVASCULAR: None GASTROINTESTINAL: None GENITOURINARY: None MUSCULOSKELETAL: None LYMPHATICS: None HEMATOLOGICAL: None PSYCHIATRY: As above NEUROLOGICAL: None Past medical history to include: Psychosis, anxiety depression Social history: Does smoke occasionally. No use of recreational drugs. . Her children are with her [id number] Family history: Reviewed, noncontributory to presentation Physical examination: VITAL SIGNS: 98.3, 76, 20, 1:30 through 78, 99% room air GENERAL: BMI 23.3 sitting up, comfortable. EYES: Pupils equal. Conjunctiva normal. HEENT: External appearance of nose and ears normal, oral cavity grossly normal. NECK: JVD not raised; masses not palpable. HEART: First and second heart sounds are normal; no edema. LUNGS: Respiratory rate normal; clear to auscultation. ABDOMEN: Soft, nontender, liver spleen not palpable, no masses palpable. PSYCH: Alert and oriented x3; mood and affect normal. NEUROLOGICAL: Cranial nerves grossly intact; no facial asymmetry, power and sensation grossly intact. LYMPHATICS: No lymph nodes palpable in the axilla and neck INVESTIGATIONS, reviewed in the clinical context: White count 5.9 hemoglobin 10.1 platelets. 9 pressure 4.3 creatinine 0.69 UA positive for leukoesterase Dr. STACK Assessment: -Iron deficiency anemia Psychosis unspecified -Acute UTI from cystitis Plan: Reviewed with the patient iron supplementation. Give 3 days of Keflex. Patient should follow with the family doctor upon discharge. Thank you Dr. Peña Past Medical History Past Medical History: No Reported History Additional Past Medical History / Comment(s): Obstetric history: She has had 3 vaginal deliveries, and one miscarriage. This is her fourth . She's had care with me since the first trimester. Blood type is A+, amylase negative, rubella immune, hepatitis B-, GBS positive, RPR nonreactive. She did have psychosis during this and was admitted to mental health, placed on Abilify. History of Any Multi-Drug Resistant Organisms: None Reported Past Surgical History: No Surgical Hx Reported Past Psychological History: Anxiety, Depression Smoking Status: Light tobacco smoker Past Alcohol Use History: None Reported Past Drug Use History: None Reported - Past Family History Mother Family Medical History: No Reported History Medications and Allergies Home Medications Medication Instructions Recorded Confirmed Type ARIPiprazole [Abilify Maintena] 400 mg IM Q28D 01/24/20 01/24/20 History Allergies Allergy/AdvReac Type Severity Reaction Status Date / Time No Known Allergies Allergy Verified 01/24/20 16:44 Physical Exam Vitals: Vital Signs Temp Pulse Pulse Pulse Resp BP BP 01/25/20 06:57 97.9 F 65 12 01/24/20 21:27 70 118/60 01/24/20 16:29 97.6 F 70 16 01/24/20 12:37 98.3 F 76 20 133/78 BP Pulse Ox 01/25/20 06:57 100/59 01/24/20 21:27 01/24/20 16:29 116/79 100 01/24/20 12:37 99 Intake and Output 01/24/20 01/25/20 01/25/20 22:59 06:59 14:59 Other: Weight 57.742 kg Results CBC & Chem 7: 01/25/20 07:16 01/25/20 07:16 Labs: Abnormal Lab Results - Last 24 Hours (Table) 01/24/20 01/25/20 01/25/20 Range/Units 14:07 07:16 07:16 Hgb 10.1 L (11.4-16.0) gm/dL MCH 23.8 L (25.0-35.0) pg MCHC 29.6 L (31.0-37.0) g/dL RDW 19.5 H (11.5-15.5) % Sodium 136 L (137-145) mmol/L LDL Cholesterol, Calc 101 H (0-99) mg/dL Urine Appearance Cloudy H (Clear) Ur Leukocyte Esterase Large H (Negative) Urine WBC 34 H (0-5) /hpf Urine Mucus Rare H (None) /hpf
[2020-01-25] MEDS: CEPHALEXIN 250 MG CAP PO SCH (22:14)
[2020-01-26] MEDS: OLANZapine ODT 5 MG TAB PO SCH ×2 (08:59→22:37)
[2020-01-26] MEDS: CEPHALEXIN 250 MG CAP PO SCH ×3 (09:00→22:37)
--- NOTE | 2020-01-26 15:08 | P.PN ---
Progress Note - Text Progress Note Date: 01/26/20 Subjective: Patient was seen today as a cross coverage for . The patient was evaluated, chart reviewed, case discussed with the treatment team. Patient reported good sleep, and according to chart review patient slept about 5 hours last night. Appetite was reported as " fair". Patient has not been going to groups and other unit activities. The patient is compliant with her medications and denies any adverse reactions. Patient reports feeling "okay" and he denies depression, severe mood swings, or agitation. She denies any hallucinations, paranoid ideation, and no delusions could be elicited but patient presented guarded and superficial in her answers. Objective: Vitals has been reviewed. Mental status examination: Appearance: Appears stated age, fairly groomed, average body built, and no specific features. Gait/ posture: Steady gait, normal arm swinging, no abnormal movements, with relaxed posture. Attitude and Behavior: engaged, cooperative but to some degree superfical in her answers, fair eye contact during course of interview. Motor Activity: normal psychomotor activity. Speech: spontaneous, slow rate, rhythm, and articulation. normal volume. not pressured. Language: Articulating, naming objects and repeat phrases. Mood: "frustrated" Affect: Restricted. Thought process: Linear, goal-directed. Association: intact, not circumstantial, not tangential. Thought content: Denies delusions, Denies suicidal thoughts, Denies homicidal thoughts, Denies intentions, or plans. Perception: Denies any hallucinations. No RIS Alertness: No impairment. Concentration: fair Orientation: oriented to time, person, place and situation Insight regarding psychiatric condition: Limited as per report of her outpatient psychiatrist pateint is not copmpliant with treatment. Judgment regarding daily activities and social situation: fair Impulse control: fair Assessment: Psychosis, unspecified. Plan: Continue the patient inpatient for safety. Continue the patient under 15 minutes safe check for safety. Psych education regarding diagnosis, and treatment option. The patient will also be provided with individual therapy, group therapy, substance abuse counseling, gain insight, and coping skills. Consider medical consultation if any acute medical issue arise. Medications: Continue [facility]ili [facility] - and nursing to verify last dose received and date of next injection. EXPECTED LENGTH OF STAY: 5 days.
[2020-01-27] MEDS: CEPHALEXIN 250 MG CAP PO SCH ×3 (08:55→21:05)
[2020-01-27] MEDS: OLANZapine ODT 5 MG TAB PO SCH ×2 (08:56→21:11)
--- NOTE | 2020-01-27 10:21 | P.PN ---
Progress Note - Text Progress Note Date: 01/27/20 Interval History: Patient was seen attending group and was seen for cross coverage today for Dr. Peña. Patient was brought in over the weekend for allegedly noncompliance with treatment at home. Patient appeared to be calm and cooperative and directable during conversation with fiction and nonfiction prose writer and was agreeable to be interviewed and was fairly appropriate. Patient has been taking her Zyprexa 5 mg daily started over the weekend. Patient states that she was complying with treatment at home and went for her first Abilify long-acting injection on 01/02 and she claims that she is apparently due for her injection this month on 01/30. Patient denies any depression at this time or any anxiety and was mainly focused on discharge and getting back to her 1-month-old baby. She states that she slept well last night and has been going to groups. Patient is not responding to internal stimuli and was non-bizarre during interview. At this time patient denies any suicidal or homical ideations, intent or plan. Patient denies any auditory, visual hallucinations and denies any paranoia or delusions. Patient denies any side effects from the medications and has been compliant with meds. Mental Status Exam: General Appearance: Patient appears to be stated age is alert, directable, and cooperative. Fair hygiene and grooming. Behavior: Patient is calmly seated without any agitated behavior. Not responding to internal stimuli. Speech: Patient's speech is fluent and nonpressured. Mood/Affect: Mood is "okay", affect is congruent and constricted. Suicidality/Homicidality: Patient denies having any suicidal or homicidal ideation intent or plan. Perceptions: Patient denies any visual hallucinations and denies any auditory hallucinations Though content/process: There is no evidence of any delusional thought content and thought process is linear and goal-directed. Focused on discharge. Memory and concentration: AOX3, grossly intact for the purposes of this session Judgment and insight: Improving Assessment Psychosis unspecified Plan: -Patient continues to meet criteria for inpatient psychiatric admission for symptom stabilization and safety. -Medications: Continue with Zyprexa 5 mg twice a day for psychosis. -Trazodone when necessary for sleep. -When necessary Vistaril for anxiety. -NRT -not need to this patient does not smoke. -SW on board for discharge planning. Attempting to confirm when patient will need her next Abilify Maintenna injection and will work with social contact worker and team to coordinate with [facility] regarding patient's care and any underlying concerns they may have at home about patient.
[2020-01-28] MEDS: CEPHALEXIN 250 MG CAP PO SCH ×2 (09:31→15:34)
[2020-01-28] MEDS: OLANZapine ODT 5 MG TAB PO SCH (09:31)
--- NOTE | 2020-01-28 10:50 | P.PN ---
Progress Note - Text Interval history: The patient is found in group she follows me to an interview room. The patient was admitted several days ago apparently for noncompliance with treatment. She was on a deferral agreement. The patient was transitioned to the Abilify maintena injection after she delivered her baby. She indicates that she goes for appointments 2-3 times a month and is aware that she needs to stay on the injection. She states that she does not know why she was admitted because she has not missed any appointments. We discussed the case during treatment team meeting. Social work will reach out the patient's to verify her compliance with treatment. She was started on Zyprexa 5 mg twice daily on 01/24/2020. Mental status exam: The patient is alert she is dressed in her own clothing hygiene grooming are adequate. Eye contact is appropriate. Speech is fluent and spontaneous nonpressured. She indicates her mood is fine. She is reporting no suicidal ideation intent or plan she reports no homicidal ideation intent or plan. She specifically denies having any thoughts of harming her baby or other children. She is reporting no auditory or visual hallucinations or any specific delusions. She demonstrates no objective evidence of psychosis during our brief session. She demonstrates no tangential thinking loose associations or flight of ideas. She does not appear hypomanic or manic. She demonstrates no verbal or physical aggressiveness she demonstrates no involuntary repetitive movements. Plan: The patient is known to me from a prior admission. At that time she minimize symptoms to facilitate a discharge. She's denying all symptoms at this time. We will gather collateral information in terms of her compliance with outpatient treatment. I understand a demand for hearing was filed we are awaiting that date. At this time I do not see the need for the Zyprexa. I will discontinue the Zyprexa we will monitor for symptoms of psychosis. Vital signs reviewed.
--- NOTE | 2020-01-29 11:04 | P.PN ---
Progress Note - Text Interval history: The patient is found in her room she follows me to an interview room. She indicates her mood is good. She would like to be discharged. We discussed her case during treatment team meeting. Social was able to speak with the patient's . Social work notes were reviewed. The patient was able to sleep at night. Appetite is stable. She is attending groups. We reviewed her psychotropic medication. At this time she stating that she is healthy and does not wish to have the next Abilify maintain injection. S he states that she last received that on January 02. If that is the case she would be due for her next injection. We will verify with [facility]. Mental status exam: The patient is alert she's just her own clothing hygiene grooming are adequate. Speech is fluent spontaneous nonpressured. She reports no suicidal or homicidal ideation intent or plan. She reports no auditory or visual hallucinations or specific delusions. Symptoms of psychosis may persist in residual form however. Her indicated that she was responding to stimuli at home. She is perseverative. She continues to state that she is "healthy". She indicates that she does not require medication any further. She states he is been no change since she's been on the medication and that should demonstrate why she doesn't need it any further. She demonstrates no involuntary repetitive movements she demonstrates no verbal or physical aggressiveness. Affect is constricted. Plan: We will verify when the next Abilify maintena injection is due. Her court hearing is not scheduled until next week we will see if that can be moved forward. At this point she is not agreeable to having us give her her next Abilify maintena injection. We will continue to monitor for safety we will monitor her participation in groups. We will continue to involve family in treatment and discharge planning as she will allow.
--- NOTE | 2020-01-30 09:11 | P.PN ---
Progress Note - Text Interval history: The patient is found in the hallway she follows me to an interview room. She indicates her mood is fine. She indicates that her visited last evening. Staff report that she slept 5 hours she states she slept 8 hours. Appetite stable. She continues to participate in group. She states that she is only focused on going home. Again we reviewed her psychotropic medication. Today she more definitively states that she is refusing the Abilify shot. She indicates that she was on the Abilify prior to that she feels it made no difference and does not wish to continue it. We discussed that this is why she is going to participate in a court hearing and if a treatment orders issued she will have to comply with the Abilify maintena injection. Mental status exam: The patient is alert she's cooperative hygiene grooming adequate eye contact is appropriate. Speech is fluent spontaneous nonpressured. She somewhat perseverative on the same topic that she is "healthy" and does not need medication. She is reporting no suicidal or homicidal ideation intent or plan. She is reporting no auditory or visual hallucinations or specific delusions. Obviously she may be underreporting symptoms. She maintains a constricted affect. She demonstrates no verbal or physical aggressiveness she demonstrates no involuntary repetitive movements. Insight and judgment impaired. She is oriented to person and date month and year. Plan: The patient is awaiting the court hearing. We have requested that it be made sooner. We will verify the due date of the injection. She is refusing the medication if we are able to obtain a treatment order we will administer the Abilify maintena. Vital signs reviewed. We will continue to monitor her for safety. She is instructed to continue participating in the milieu.
--- NOTE | 2020-01-31 09:23 | P.PN ---
Progress Note - Text Interval history: The patient is found in her room she follows me to an interview room. She indicates her mood is good. She states that she's had phone calls with her children and her . She indicates that they're doing well. Social work notes were reviewed the patient's indicates that she still appears paranoid to him. The patient continues to tell me that she refuses any further psychiatric medication. She states that she is healthy and does not need it. She is now overdue for her Abilify maintena injection. Staff reported she slept 7 hours. She is eating. She is attending groups. Mental status exam: The patient is alert she is dressed in her own clothing hygiene grooming are adequate. Eye contact is appropriate. Speech is fluent nonpressured. Speech is not very spontaneous but she does provide answers to questions. She remains attentive during the session. She reports no suicidal ideation intent or plan. She reports no auditory or visual hallucinations or any specific delusions. I do believe that she would underreport symptoms if she was experiencing them however as she has done that in the past. Insight and judgment impaired. She demonstrates no verbal or physical aggressiveness. She remains oriented to person place and date. Affect is constricted to euthymic. Plan: The patient is awaiting a full court hearing. She continues to refuse any psychiatric medication. We will monitor her for safety. Vital signs reviewed. She is encouraged to continue participating in the milieu.
[2020-01-31 12:50] VITALS: BMI 23.2
--- NOTE | 2020-02-01 12:12 | P.PN ---
Progress Note - Text Progress Note Date: 02/01/20 Interval history: Patient was seen participating in group and was directable and agreeable to s peak with sports writer. Patient continues to have poor judgment and insight and spoke very superficially to sports writer. Patient continues to decline taking medications and states that she would like to go to court. She spoke about wanting to go to "therapy in [place]" and completely disregards medications and states that she is "too healthy" to take medications. She states that she slept good last night and has been going to groups. At this time patient denies any suicidal or homicidal ideations intent or plan. Denies any Auditory or visual hallucinations. Mental status exam: General Appearance: Patient appears to be stated age is alert, superficially cooperative. Wearing street clothing, fair eye contact. Behavior: No agitated behavior. Patient is calm and directable superficially cooperative. Speech: Patient's speech is and nonpressured. Mood/Affect: Mood is "okay good", affect is congruent and constricted. Suicidality/Homicidality: Patient denies having any suicidal or homicidal i deation intent or plan. Perceptions: Patient denies any auditory or visual hallucinations. Though content/process: [place], superficially cooperative, logical. Memory and concentration: AOX3, grossly intact for the purposes of this session Judgment and insight: Poor Assessment/Plan: Continue with current diagnosis. Patient continues to meet criteria for inpatient psychiatric admission for symptom stabilization and safety.Patient will be maintained on current psychotropic medication regimen. At this time patient is continuing to decline medications and is scheduled for court next week for treatment order. Will continue to monitor ongoing response to treatment. Encouraged participation in milieu.
--- NOTE | 2020-02-02 10:50 | P.PN ---
Progress Note - Text Progress Note Date: 02/02/20 Interval history: Patient was seen participating in group and trying to complete a puzzle in the lounge and was directable and agreeable to speak with bid writer. Patient was calm and cooperative with bid writer and attempted to answer questions appropriately as she could. Patient continues to have poor judgment and insight and continues to speak about "healthy" and not needing her medications. She continues to state that she has been going to her medication appointments and getting her injectio n. She states that she spoke with her and her kids over the phone yesterday. She was asking about discharge but the court process and it was explained to her. She states that she slept throughout the night last night and has been eating her meals and claims her mood is "fine". At this time patient denies any suicidal or homicidal ideations intent or plan. Denies any Auditory or visual hallucinations. Does not endorse any paranoia. Mental status exam: General Appearance: Patient appears to be stated age is alert, superficially cooperative. Wearing street clothing, fair eye contact. Behavior: No agitated behavior. Patient is calm and directable superficially cooperative. Speech: Patient's speech is and nonpressured. Mood/Affect: Mood is "fine", affect is congruent and constricted. Suicidality/Homicidality: Patient denies having any suicidal or homicidal ideation intent or plan. Perceptions: Patient denies any auditory or visual hallucinations. Though content/process: [place], superficially cooperative, logical. Memory and concentration: AOX3, grossly intact for the purposes of this session Judgment and insight: Poor Assessment/Plan: Continue with current diagnosis. Patient continues to meet criteria for inpatient psychiatric admission for symptom stabilization and safety.Patient will be maintained on current psychotropic medication regimen. At this time patient is continuing to decline medications and is scheduled for court next week for treatment order. Will continue to monitor ongoing response to treatment. Encouraged participation in milieu.
--- NOTE | 2020-02-03 09:50 | P.PN ---
Progress Note - Text Interval history: The patient's found in group she follows me to an interview room. She indicates that her mood is fine. She states that she slept throughout the night staff reported she slept 3 hours. She states she has been speaking with her via phone. She continues to ask about discharge. Again we discussed the court process. An effort was made to reexplain the need for psychotropic medication. She refuses to take anything at this time. She repeatedly states that she is healthy. Mental status exam: The patient is alert she is dressed in her own clothing hygiene grooming adequate. Speech is fluent spontaneous nonpressured. She continues to have poor insight into her need for treatment and is refusing medication. This is suggestive of her having delusional thoughts. She is reporting no symptoms of psychosis she reports no suicidal or homicidal ideation intent or plan. She seated calmly in the chair she demonstrates no verbal or physical aggressiveness. She demonstrates no involuntary repetitive movements. She is oriented to person place and date. Plan: The patient is overdue for her Abilify maintena injection. She is refusing any psychotropic medication at this time. We are awaiting the court hearing scheduled for Monday. She will be encouraged to continue participating in the milieu. Continue monitoring her for safety. Vital signs reviewed.
--- NOTE | 2020-02-04 10:54 | P.PN ---
Progress Note - Text Interval history: The patient is found in group she follows me to an interview room. She indicates her mood is fine. She again asked about discharge. We again discussed the court hearing that will take place tomorrow. She again refuses the Abilify injection at this time. She reports that she slept last night appetite is stable. Mental status exam: The patient is alert she' dressed in her own clothing hygiene grooming are adequate. Speech is fluent spontaneous nonpressured. She reports mood is fine affect is constricted. She reports no suicidal or homicidal ideation intent or plan she is reporting no auditory or visual hallucinations or specific delusions. She may be underreporting symptoms of psychosis that exist in residual form. She demonstrates no verbal or physical aggressiveness she demonstrates no involuntary repetitive movements. She remains attentive to the interview she demonstrates no objective evidence of psychosis at this time area and staff report that her behavior has been appropriate and predictable during the course of the hospitalization so far. She reports no suicidal or homicidal ideation intent or plan. She reports no thoughts of harming her children she has never reported any thoughts of harming her children or family. Plan: The patient has court scheduled for tomorrow morning. If we are granted a treatment order we will give her the Abilify maintena injection and will plan to discharge her home. We will monitor her for safety we continue to encourage her participation in the milieu. Vital signs reviewed.
[2020-02-05 06:46] VITALS: PULSE 74
[2020-02-05] MEDS ORDERED: ARIPiprazole IM SYRINGE 400 MG (NO CHARGE) IM ONE (14:00)
--- NOTE | 2020-02-05 16:13 | PN ---
PROGRESS NOTE DATE OF SERVICE/DICTATION: 02/05/2020. INTERVAL HISTORY: The patient is found in her room. She follows me to an interview room. The patient did participate in a court hearing this morning pertaining to need for treatment. A treatment order was issued. We discussed that she would receive the Abilify Maintena injection if the order was granted. She continues to assert that the medication is not needed. MENTAL STATUS EXAMINATION: The patient is alert. She is dressed in her own clothing. Hygiene and grooming are adequate. Speech is fluent, spontaneous, non-pressured. She is reporting no suicidal or homicidal ideation, intent or plan. She reports no auditory or visual hallucinations or any specific delusions. She may have residual delusions that she is not discussing, however. She is demonstrating no verbal or physical aggressiveness. She demonstrates no repetitive involuntary movements. Insight and judgment limited. She remains oriented to person, place and date. PLAN: The patient will be given Abilify Maintena 400 mg IM. We will monitor her for safety. Her behavior on the mental health unit has been consistent. She has been demonstrating the ability to care for herself. She has been eating, sleeping, attending to her hygiene. She is demonstrating no aggressive behavior. Social Work will contact the patient's for discharge planning purposes. I would expect that we will be discharging her in the next 1 to 2 days. We will continue monitoring her for safety, encouraging participation in the milieu. Vital signs reviewed. MMODL / IJN: [id number] /
[2020-02-06 06:52] VITALS: BP 101/56; RESP 16; TEMP 98.7
--- NOTE | 2020-02-06 11:46 | P.DS ---
Providers Date of admission: 01/24/20 15:28 Expected date of discharge: 02/06/20 Attending physician: Akhil Peña Consults: 01/24/20 15:32 Consult Physician Routine Consulting Provider: Ramez Duggan Consult Reason/Comments: follow up H & P Do you want consulting provider notified?: Yes Primary care physician: Wilmar Serna - Discharge Diagnosis(es) (1) Acute psychosis Current Visit: Yes Status: Acute Priority: High Hospital Course: Brief summary of admission note: This patient is a 42-year-old Monegasque [place] female who was admitted to the mental health unit through the emergency room on a demand for hearing. She was previously treated on this mental health unit for acute symptoms of psychosis while . After discharge there was concern that she was not complying with her oral antipsychotic medication. And there was concern that her symptoms were relapsing. She was brought back to the hospital for readmission. She was initially seen by Dr. Hartmann as he on 01/25/2020 please refer to that psychiatric evaluation for full detail. Summary of hospital course: The patient was admitted to the mental health unit in voluntarily. We reviewed her presenting symptoms and treatment options. With her last hospitalization she was successfully stabilized with Abilify and this was transitioned to Abilify maintena in the outpatient setting. We decided to continue the Abilify maintena that the patient was not agreeable to having the injection given again until we obtain the court order. The patient did participate in a court hearing yesterday and a treatment order was issued. Yesterday she received Abilify maintena 400 mg IM. Today I was contacted by her outpatient psychiatrist Dr. Candido Cavazos to discuss her care and subsequent follow-up. section gang worker did contact the patient's to discuss discharge planning. He indicated that he would pick her up from the hospital this afternoon. The patient was seen by internal medicine for routine history and physical exam. Social work met with the patient to complete a psychosocial assessment and for discharge planning purposes. During the course of her admission the patient was pleasant cooperative and easily directed. She attended groups she was able to sleep at night appetite was stable. She maintain appropriate hygiene grooming. She demonstrated no aggressive behavior no verbal aggressiveness. Mental status exam: The patient is alert she presents with good hygiene grooming eye contact is appropriate speech is fluent and spontaneous nonpressured. She reports that her mood is fine. Affect is appropriately expressive. She denies having any hopelessness thinking she denies having any suicidal ideation intent or plan. She specifically denies having any thoughts of harming her or any of her children including the baby. She is reporting no auditory or visual hallucinations or any specific delusions. Including today she has demonstrated no evidence of responding to internal stimuli such as auditory hallucinations. She specifically denies having any command auditory hallucinations. She is reporting no current paranoid or persecutory thoughts as we describes several types. Symptoms of psychosis may persist in residual form that she is underreporting but she is not demonstrating behavior consistent with psychosis currently. Insight and judgment have improved in the sense that she is aware that she is on a treatment order and needs to comply with her medications and appointments. She demonstrates no involuntary repetitive movements. She demonstrates no verbal or physical aggressiveness. She is oriented to person place and date. She demonstrates appropriate examples of future oriented thinking. Impressions 1. Psychosis unspecified, rule out schizophrenia Plan: The patient will be discharged mental health unit today to return home with her family. Her has verbalized that he will ensure that the children are appropriately supervised and kept safe. The patient will continue on Abilify maintena 400 mg IM every 28 days her next injection is due 03/04/2020. She endorses no use of alcohol marijuana or illicit drugs. At this time there is no imminent safety risk she does not require continued involuntary hospitalization. She is appropriate for transition back to outpatient care. She is instructed to return to the hospital if any acute safety concerns. Patient Condition at Discharge: Stable Plan - Discharge Summary Discharge Rx Participant: No New Discharge Prescriptions: Continue ARIPiprazole [Abilify Maintena] 400 mg IM Q28D #1 syr Discharge Medication List ARIPiprazole [Abilify Maintena] 400 mg IM Q28D #1 syr 02/06/20 [Rx] Follow up Appointment(s)/Referral(s): Wilmar Serna MD [Primary Care Provider] - 1-2 days Patient Instructions/Handouts: Suicide Prevention (DC) Activity/Diet/Wound Care/Special Instructions: Activity and diet as tolerated. Avoid the use of street drugs and alcohol. Take all medications as prescribed. When you are in need of refills on your medications please contact your medical provider and/or outpatient psychiatrist to have this done. Please go to scheduled outpatient appointment for aftercare treatment. If symptoms return or become worse, call the crisis line at and/or go to the nearest emergency room for evaluation.
== END 2020-02-06 13:30 | disposition home or self-care (01) | DRG 885 ==
LOC: EC 12:21 → 3MHU 15:28
PROVIDERS: ADMIT Psychiatry & Neurology Psychiatry; ATTEND Psychiatry & Neurology Psychiatry
DX: F23 Brief psychotic disorder (principal); N30.00 Acute cystitis without hematuria; D50.9 Iron deficiency anemia, unspecified; F17.210 Nicotine dependence, cigarettes, uncomplicated; Z91.19 Patient's noncompliance with other medical treatment and regimen; Z56.0 Unemployment, unspecified; F41.9 Anxiety disorder, unspecified; F32.9 Major depressive disorder, single episode, unspecified; Z79.899 Other long term (current) drug therapy
CPT/HCPCS: 80053; 80061; 80306; 81001; 81025; 82075; 82248; 83036; 84443; 85025; 99285

== ENCOUNTER → 2020-06-11 | Outpatient (CLI) | payer OTHER ==
--- NOTE | 2020-06-11 15:06 | MM ---
Reason for exam: screening (asymptomatic). Baseline mammogram. History: Patient had first child at age 29. Taking hormonal contraceptives for 2 months. Physical Findings: Nurse Summary: 1 x 0.5cm nodule in the left breast at 3 o'clock (nurse ts). MG Screening Mammo w CAD Bilateral CC and MLO view(s) were taken. The breast tissue is extremely dense which could obscure a lesion on mammography. These results were verbally communicated with the patient and result sheet given to the patient on 06/11/20. ASSESSMENT: Incomplete: need additional imaging evaluation, BI-RAD 0 RECOMMENDATION: Ultrasound of the left breast.
--- NOTE | 2020-06-11 15:06 | USB ---
Reason for exam: additional evaluation requested from abnormal screening. History: Patient had first child at age 29. Taking hormonal contraceptives for 2 months. Physical Findings: Breast exam preformed at baseline screening. US Breast Workup Limited LT Left limited breast ultrasound including focal area of concern, retroareolar and axilla demonstrates no cystic or solid lesion seen. These results were verbally communicated with the patient and result sheet given to the patient on 06/11/20. ASSESSMENT: Benign, BI-RAD 2 RECOMMENDATION: Return to routine screening mammogram schedule for both breasts. Manage patient on a clinical basis.
== END | disposition home or self-care (01) ==
LOC: RADMAMWWP 13:35
PROVIDERS: ATTEND Obstetrics & Gynecology
DX: Z12.31 Encounter for screening mammogram for malignant neoplasm of breast (principal); N63.0 Unspecified lump in unspecified breast
CPT/HCPCS: 77067